=== PATIENT | male | born 1950 | race Caucasian/White ===

== ENCOUNTER 2019-12-31 15:00 | Inpatient (IN) ==
--- NOTE | 2019-12-31 15:36 | ERNOTE ---
Medical Problem HPI - Narrative Date of Service: 12/31/19 - General Chief Complaint: General Assessment Time Seen by Provider: 12/31/19 15:14 Source: patient Exam Limitations: no limitations - Immun/Allergies/Home Medications Immunizations: IMMUNIZATION HX Immunizations Up to Date Yes History of Influenza Vaccine No Hx Pneumococcal Vaccination No Allergies/Adverse Reactions: Allergies No Known Allergies Allergy (Verified 12/31/19 15:10) Home Medications: HOME MEDICATIONS NK 12/31/19 [Last Taken Unknown] - Pain Score Pain Score #1 Pain Score: 6 - History of Present History Narrative: The patient is a 69 year old male who presents for dyspnea and fatigue which has been present for 1 week. There are associated symptoms of abdominal pain and vomiting for the past several months. The patient denies pain. There are no alleviating factors. There are aggravating factors of activity and oral intake. Previous treatments have included: none. The past medical history includes: emphysema, pancreatitis, COPD, GERD and HTN. The social history is positive for current tobacco use. The patient has had no known ill contacts. Patient reports weight loss along with daily vomiting upon awakening for the past several months. Patient states he has had productive cough and tenacious sputum over the past week with increased weakness and dyspnea. Review of Systems - Review of Systems Constitutional: Present: chills, fatigue. Absent: fever EYE: Present: no symptoms reported ENT: Present: nose congestion, nasal drainage. Absent: ear pain, sore throat Respiratory: Present: shortness of breath, cough Cardiology: Present: no symptoms reported. Absent: chest pain Gastrointestinal/Abdominal: Present: nausea, vomiting, abdominal pain, eating less, drinking less. Absent: diarrhea Genitourinary: Present: no symptoms reported. Absent: dysuria Musculoskeletal: Present: no symptoms reported. Absent: back pain Skin: Present: no symptoms reported. Absent: rash Neurological: Present: dizziness/light-headedness, weakness All Other Systems: All systems neg except as marked Medical History (Last Reviewed 12/31/19 @ 15:29 by EFRAIN Milton) Cholelithiasis (Chronic) Weight loss of more than 10% body weight (Acute) Essential hypertension (Chronic) COPD mixed type (Chronic) Excessive tearing (Acute) Blepharochalasis left lower eyelid (Chronic) Tobacco abuse (Acute) Hypertension (Chronic) Chronic GERD (Chronic) Onset Date: ~05/31/13 COPD (chronic obstructive pulmonary disease) (Chronic) Onset Date: ~05/31/13 Emphysema lung (Chronic) Pancreatitis Onset Date: ~05/02/16 Chronic Calcific Surgical History: Surgical History (Last Reviewed 12/31/19 @ 15:29 by EFRAIN Milton) H/O colonoscopy Onset Date: ~201308/10/14- repeat 3-5 years for tubular adenoma History of hernia repair History of surgical removal of pilonidal cyst H/O vasectomy Family History: Family History (Last Reviewed 12/31/19 @ 15:29 by EFRAIN Milton) Father , @ age 88 Heart problem Mother , @ age 58 Cancer Unknown kind Social History: (Last Reviewed 12/31/19 @ 15:29 by EFRAIN Milton) Social History: Marital status: household members: children number of children: 3 current occupational status: retired Highest education level completed: high school graduate Service: No Tobacco: Smoking Status: Current every day smoker Alcohol: alcohol intake: former Substance Use: substance use type: does not use Dietary Habits: caffeine: Yes Physical Exam - Physical Exam General Appearance: Present: wd/wn, alert, moderate distress, thin Head Exam: Present: normal inspection Eye Exam: Normal inspection: bilateral Ears, Nose, Throat: Present: normal except -, dry mucous membranes Neck: Present: normal inspection Respiratory: Present: no respiratory distress, normal breath sounds, no accessory muscle use, lungs clear Cardiovascular/Chest: Present: no murmur, tachycardia Gastrointestinal/Abdominal: Present: nondistended, soft, no organomegaly, tenderness - RUQ, epigastric, abnormal bowel sounds - hypoactive, guarding - RUQ. Absent: rebound, mass Extremity Exam: Present: no edema Neurological Exam: Present: alert, oriented, normal mood/affect, no motor/sensory deficits Skin Exam: Present: normal color, warm/dry Progress - Date and Time Seen: Date and Time: 12/31/19 18:02 Results of testing reviewed with patient. Patient states he is feeling to weak to care for himself at home. Case discussed with and will admit for IV antibiotics and IV hydration with monitoring of electrolytes and liver function. - Results and Orders Patient's Lab Results:: I have reviewed the patient's lab results. Results and Orders: Laboratory Tests 12/31/19 12/31/19 12/31/19 15:34 15:34 15:34 WBC 8.5 Hgb 11.8 L Hct 35.5 L Plt Count 360 Neutrophils % 71.4 Lymphocytes % 19.6 L PT INR (Anticoag Therapy) D-Dimer 0.66 H Sodium 143 H Potassium 2.6 L D Anion Gap 21.5 H BUN 26 H D Creatinine 1.42 H D Est GFR (Non-Af Amer) 53 L D Total Bilirubin 1.1 AST 229 H ALT 131 H Alkaline Phosphatase 520 H Troponin I 0.029 C-Reactive Prot, Quant 5.7 H B-Natriuretic Peptide Albumin 1.7 L Amylase 43 Lipase 5 L Ur Specific Minto Urine Nitrate Ur Leukocyte Esterase Urine RBC Urine WBC Ur Epithelial Cells Urine Bacteria Urine Culture Comments 12/31/19 12/31/19 12/31/19 15:34 15:34 15:45 WBC Hgb Hct Plt Count Neutrophils % Lymphocytes % PT 12.3 H INR (Anticoag Therapy) 1.25 H D-Dimer Sodium Potassium Anion Gap BUN Creatinine Est GFR (Non-Af Amer) Total Bilirubin AST ALT Alkaline Phosphatase Troponin I C-Reactive Prot, Quant B-Natriuretic Peptide 777 H Albumin Amylase Lipase Ur Specific Minto 1.025 Urine Nitrate Positive H Ur Leukocyte Esterase Negative Urine RBC 0-5 Urine WBC 5-10 H Ur Epithelial Cells 0-5 Urine Bacteria 1+ H Urine Culture Comments Culture to follow - Vital Signs Patient's Vital Signs:: I have reviewed the patient's vital signs. Vital Signs: Vital Signs 12/31/19 15:03 Temperature 36.5 C Pulse Rate 103 H Respiratory Rate 20 Blood Pressure 122/75 O2 Sat by Pulse Oximetry 98 - EKG EKG #1 EKG: NSR - tachycardia, nonspecific ST T wave changes EKG read: Reviewed by me - X-Ray X-Ray #1 X-Ray: chest Interpretation: Reviewed by me X-ray Comments: IMPRESSION: NO ACUTE CARDIOPULMONARY ABNORMALITY IDENTIFIED. Electronically signed by Brett Ojeda D.O. X-Ray #2 X-Ray: abdomen Interpretation: Reviewed by me X-ray Comments: IMPRESSION: MILD FECAL RETENTION WITHOUT EVIDENCE FOR OBSTRUCTION. Electronically signed by Brett Ojeda D.O.. - CT/Ultrasound CT/Ultrasound Narrative: IMPRESSION: No evidence for cholecystitis. Electronically signed by Jass Perkins M.D.. IMPRESSION: 1. No identifiable PE or filling defect to suggest pulmonary embolus. 2. Remainder of the exam is as above Electronically signed by Jass Perkins M.D.. - Progress/Reassessment Chief Complaint: General Assessment Departure Clinical Impression: Dehydration, CHARITY (acute kidney injury), Weakness Urinary tract infection Qualifiers: Urinary tract infection type: site unspecified Hematuria presence: without hematuria Qualified Code(s): N39.0 - Urinary tract infection, site not specified - Departure Disposition: Still a patient Condition: Stable Referrals: Jeremy Anderson DO [Primary Care Provider] -
[2019-12-31 15:40] LABS: Hematocrit 35.5 % (42.0-52.0); Hemoglobin 11.8 gm/dL (13.5-18.0); Mean Cell Volume 99.7 fl (78-100); Mean Corpuscular Hemoglobin 33.1 pg (27-31); Mean Corpuscular Hgb Conc 33.2 g/dl (32-36); Mean Platelet Volume 10.5 fl (8-11.3); Neutrophil # 6.1 K/mm3 (1.3-6.0); Neutrophil % 71.4 % (42-75.0); Platelet Count 360 K/mm3 (150-450); Red Blood Count 3.56 M/mm3 (4.7-6.0); Red Cell Distribution Width 13.8 % (11.5-14.0); White Blood Count 8.5 K/mm3 (4.0-10.5)
[2019-12-31 15:51] LABS: Urine Bilirubin 1 mg/dl (NEGATIVE); Urine Blood Negative /ul (NEGATIVE); Urine Ketone 15 mg/dL (NEGATIVE); Urine Protein 15 mg/dL (NEGATIVE); Urine Specific Gravity 1.025 SP.GR. (1.005-1.030); Urine Urobilinogen 4 EU/dl (NORMAL)
[2019-12-31 15:59] LABS: Albumin * 1.7 gm/dl (3.4-5.0); Anion Gap 21.5 mmol/L (6.8-13.8); BUN/Creatinine Ratio 18.3 (9.0-21.6); Bilirubin, Total 1.1 mg/dL (0.0-1.1); CRP 5.7 mg/dL (0.0-0.9); Ca. Corrected For Albumin 8.5 mg/dL (8.4-10.2); Carbon Dioxide 29.1 mmol/L (24-32.6); Potassium 2.6 mmol/L (3.4-4.6); Total Protein 7.1 gm/dL (6.2-8.2)
[2019-12-31 16:00] LABS: Troponin I 0.029 ng/mL (0.00-0.10)
[2019-12-31 16:23] LABS: Urine Appearance Clear (CLEAR); Urine Bacteria 1+; Urine Color Dark Yellow; Urine Nitrite Positive (NEGATIVE); Urine RBC 0-5 /hpf (0-5)
[2019-12-31 16:24] LABS: Prothrombin Time (Patient) 12.3 Seconds (9.1-10.7)
[2019-12-31 16:26] LABS: INR 1.25 INR (0.92-1.08)
[2019-12-31] MEDS ORDERED: NORMAL SALINE 1,000 ML IV PRN (18:01)
[2019-12-31] MEDS ORDERED: cefTRIAXone SODIUM 1,000 MG/100 ML BAG IV ONE (18:01)
[2019-12-31] MEDS ORDERED: hydrALAZINE HCL 20 MG/ML VIAL IV PRN (19:27)
--- NOTE | 2019-12-31 19:30 | HP ---
Chief Complaint - Chief Complaint Date of Service: 12/31/19 Time of Service: 19:30 History of Present Illness: 69-year-old male presented to the ER yesterday for 1 weeks worth of cough, fatigue, sneha pain. Patient states he has vomited a few times since this began. His chest x-ray did not show any acute cardiopulmonary pathology. He also had a CT angiogram of his chest performed in the ER which ruled out pulmonary embolus. Patient has a history of hypertension, emphysema, GERD. Lab work in the ER showed him to have a normal white count without a shift. He did have a low potassium at 2.6 as well as an acute kidney injury with his creatinine at 1.42. Baseline is around 1. Urine showed him to have positive nitrates and positive bacteria which may be the cause of his abdominal pain and nausea. Patient admitted to the hospital for treatment of his UTI, correction of his electrolytes, and monitor management of his acute kidney injury. His vital signs have been stable is been afebrile. Medical History (Last Reviewed 12/31/19 @ 20:18 by Minerva Nelson RN) Cholelithiasis (Chronic) Weight loss of more than 10% body weight (Acute) Essential hypertension (Chronic) COPD mixed type (Chronic) Excessive tearing (Acute) Blepharochalasis left lower eyelid (Chronic) Tobacco abuse (Acute) Hypertension (Chronic) Chronic GERD (Chronic) Onset Date: ~05/31/13 COPD (chronic obstructive pulmonary disease) (Chronic) Onset Date: ~05/31/13 Emphysema lung (Chronic) Pancreatitis Onset Date: ~05/02/16 Chronic Calcific Surgical History: Surgical History (Last Reviewed 12/31/19 @ 20:18 by Minerva Nelson RN) H/O colonoscopy Onset Date: ~201308/10/14- repeat 3-5 years for tubular adenoma History of hernia repair History of surgical removal of pilonidal cyst H/O vasectomy Family History: Family History (Last Reviewed 12/31/19 @ 20:18 by Minerva Nelson RN) Father , @ age 88 Heart problem Mother , @ age 58 Cancer Unknown kind Social History: (Last Reviewed 12/31/19 @ 20:18 by Minerva Nelson RN) Social History: Marital status: household members: children number of children: 3 current occupational status: retired Highest education level completed: high school graduate Service: No Tobacco: Smoking Status: Current every day smoker Alcohol: alcohol intake: former Substance Use: substance use type: does not use Dietary Habits: caffeine: Yes Review Of Systems (GEN) - Review of Systems Generalized/Overall Review: Present: Fatigue. Absent: Chills, Fever, Weight loss EENTM: Present: No Symptoms Reported Cardiac: Absent: Chest Pain, Palpitations Abdominal: Present: Nausea, Vomiting, Abdominal Pain Genitourinary: Absent: Burning, Urgency Musculoskeletal: Present: No Symptoms Reported Neurological: Present: No Symptoms Reported Skin: Present: No Symptoms Reported Endocrine: Present: No Symptoms Reported Immunizations: IMMUNIZATION HX Immunizations Up to Date Yes History of Influenza Vaccine No Hx Pneumococcal Vaccination No Allergies/Adverse Reactions: Allergies Allergy/AdvReac Type Severity Reaction Status Date / Time No Known Allergies Allergy Verified 12/31/19 15:10 Home Medications: HOME MEDICATIONS NK 12/31/19 [Last Taken Unknown] Exam - Exam Vital Signs: Vital Signs - Last Taken Temp 36.6 C 12/31/19 18:40 Pulse 78 12/31/19 18:40 Resp 18 12/31/19 18:40 BP 162/97 H 12/31/19 18:40 Pulse Ox 100 12/31/19 18:40 Constitutional: Present: Alert, Oriented x3, Mild distress, Thin and frail Eye Exam: bilateral eye: normal inspection, EOMI Neck: Present: non-tender, normal inspection Back Exam: Present: no CVA tenderness Breasts: Present: Exam deferred Respiratory: Present: lungs clear, decreased breath sounds Cardiovascular/Chest: Present: regular rate, rhythm, no murmur Abdomen: Present: Normal bowel sounds, soft, tender Skin Exam: Present: normal color, warm/dry Appearance: Present: disheveled, impaired insight Eye contact: Present: good eye contact, decreased rate of speech Thoughts: Present: normal thought pattern, normal mood /affect Diagnostic Studies: Abnormal Lab Results 12/31/19 12/31/19 12/31/19 Range/Units 15:34 15:34 15:34 RBC 3.56 L (4.7-6.0) M/mm3 Hgb 11.8 L (13.5-18.0) gm/dL Hct 35.5 L (42.0-52.0) % MCH 33.1 H (27-31) pg Lymphocytes % 19.6 L (20-51) % Neutrophils # 6.1 H (1.3-6.0) K/mm3 PT (9.1-10.7) Seconds INR (Anticoag Therapy) (0.92-1.08) INR D-Dimer 0.66 H (0.19-0.49) ug/mL Sodium 143 H (132-142) mmol/L Plasma Sodium 143 H (130-142) mmol/L Potassium 2.6 L D (3.4-4.6) mmol/L Chloride 95 L (97-106) mmol/L Anion Gap 21.5 H (6.8-13.8) mmol/L BUN 26 H D (6-23) mg/dL Creatinine 1.42 H D (0.4-1.4) mg/dL Est GFR (Non-Af Amer) 53 L D (60-130) mL/min Random Glucose 117 H (70-110) mg/dL Calcium 7.0 L (7.9-10.9) mg/dL AST 229 H (0-48) U/L ALT 131 H (19-67) U/L Alkaline Phosphatase 520 H (50-170) U/L C-Reactive Prot, Quant 5.7 H (0.0-0.9) mg/dL B-Natriuretic Peptide (5-350) pg/mL Albumin 1.7 L (3.4-5.0) gm/dl Lipase 5 L (73-393) U/L Urine Protein (NEGATIVE) mg/dL Urine Nitrate (NEGATIVE) Urine Bilirubin (NEGATIVE) mg/dl Urine Urobilinogen (NORMAL) EU/dl Urine WBC (0-5) /hpf Urine Bacteria (NONE) 12/31/19 12/31/19 12/31/19 Range/Units 15:34 15:34 15:45 RBC (4.7-6.0) M/mm3 Hgb (13.5-18.0) gm/dL Hct (42.0-52.0) % MCH (27-31) pg Lymphocytes % (20-51) % Neutrophils # (1.3-6.0) K/mm3 PT 12.3 H (9.1-10.7) Seconds INR (Anticoag Therapy) 1.25 H (0.92-1.08) INR D-Dimer (0.19-0.49) ug/mL Sodium (132-142) mmol/L Plasma Sodium (130-142) mmol/L Potassium (3.4-4.6) mmol/L Chloride (97-106) mmol/L Anion Gap (6.8-13.8) mmol/L BUN (6-23) mg/dL Creatinine (0.4-1.4) mg/dL Est GFR (Non-Af Amer) (60-130) mL/min Random Glucose (70-110) mg/dL Calcium (7.9-10.9) mg/dL AST (0-48) U/L ALT (19-67) U/L Alkaline Phosphatase (50-170) U/L C-Reactive Prot, Quant (0.0-0.9) mg/dL B-Natriuretic Peptide 777 H (5-350) pg/mL Albumin (3.4-5.0) gm/dl Lipase (73-393) U/L Urine Protein 15 H (NEGATIVE) mg/dL Urine Nitrate Positive H (NEGATIVE) Urine Bilirubin 1 H (NEGATIVE) mg/dl Urine Urobilinogen 4 H (NORMAL) EU/dl Urine WBC 5-10 H (0-5) /hpf Urine Bacteria 1+ H (NONE) Laboratory Results WBC 8.5 K/mm3 (4.0-10.5) 12/31/19 15:34 RBC 3.56 M/mm3 (4.7-6.0) L 12/31/19 15:34 Hgb 11.8 gm/dL (13.5-18.0) L 12/31/19 15:34 Hct 35.5 % (42.0-52.0) L 12/31/19 15:34 MCV 99.7 fl (78-100) 12/31/19 15:34 MCH 33.1 pg (27-31) H 12/31/19 15:34 MCHC 33.2 g/dl (32-36) 12/31/19 15:34 RDW 13.8 % (11.5-14.0) 12/31/19 15:34 Plt Count 360 K/mm3 (150-450) 12/31/19 15:34 MPV 10.5 fl (8-11.3) 12/31/19 15:34 Immature Gran % (Auto) 0.40 % (0.001-0.429) 12/31/19 15:34 Immature Gran # (Auto) 0.03 K/mm3 (0.000-0.0310) 12/31/19 15:34 Neutrophils % 71.4 % (42-75.0) 12/31/19 15:34 Lymphocytes % 19.6 % (20-51) L 12/31/19 15:34 Monocytes % 8.1 % (0.0-9) 12/31/19 15:34 Eosinophils % 0.1 % (0.0-3.0) 12/31/19 15:34 Basophils % 0.4 % (0.0-1.0) 12/31/19 15:34 Nucleated RBC % 0.0 k/mm3 (0-1) 12/31/19 15:34 Neutrophils # 6.1 K/mm3 (1.3-6.0) H 12/31/19 15:34 Lymphocytes # 1.66 k/mm3 (1.5-3.5) 12/31/19 15:34 Monocytes # 0.7 k/mm3 (0.0-1.0) 12/31/19 15:34 Eosinophils # 0.0 k/mm3 (0.0-0.7) 12/31/19 15:34 Absolute Basophils 0.0 k/mm3 (0.0-0.1) 12/31/19 15:34 PT 12.3 Seconds (9.1-10.7) H 12/31/19 15:34 INR (Anticoag Therapy) 1.25 INR (0.92-1.08) H 12/31/19 15:34 PTT ([place]) 30.0 Seconds (24-32) 12/31/19 15:34 D-Dimer 0.66 ug/mL (0.19-0.49) H 12/31/19 15:34 Sodium 143 mmol/L (132-142) H 12/31/19 15:34 Plasma Sodium 143 mmol/L (130-142) H 12/31/19 15:34 Potassium 2.6 mmol/L (3.4-4.6) L D 12/31/19 15:34 Chloride 95 mmol/L (97-106) L 12/31/19 15:34 Carbon Dioxide 29.1 mmol/L (24-32.6) 12/31/19 15:34 Anion Gap 21.5 mmol/L (6.8-13.8) H 12/31/19 15:34 BUN 26 mg/dL (6-23) H D 12/31/19 15:34 Creatinine 1.42 mg/dL (0.4-1.4) H D 12/31/19 15:34 Est GFR (Non-Af Amer) 53 mL/min (60-130) L D 12/31/19 15:34 BUN/Creatinine Ratio 18.3 (9.0-21.6) 12/31/19 15:34 Random Glucose 117 mg/dL (70-110) H 12/31/19 15:34 Calcium 7.0 mg/dL (7.9-10.9) L 12/31/19 15:34 Calcium Adj for Albumin 8.5 mg/dL (8.4-10.2) 12/31/19 15:34 Total Bilirubin 1.1 mg/dL (0.0-1.1) 12/31/19 15:34 AST 229 U/L (0-48) H 12/31/19 15:34 ALT 131 U/L (19-67) H 12/31/19 15:34 Alkaline Phosphatase 520 U/L (50-170) H 12/31/19 15:34 Troponin I 0.029 ng/mL (0.00-0.10) 12/31/19 15:34 C-Reactive Prot, Quant 5.7 mg/dL (0.0-0.9) H 12/31/19 15:34 B-Natriuretic Peptide 777 pg/mL (5-350) H 12/31/19 15:34 Total Protein 7.1 gm/dL (6.2-8.2) 12/31/19 15:34 Albumin 1.7 gm/dl (3.4-5.0) L 12/31/19 15:34 Amylase 43 U/L (25-115) 12/31/19 15:34 Lipase 5 U/L (73-393) L 12/31/19 15:34 Urine Color Dark yellow 12/31/19 15:45 Urine Appearance Clear (CLEAR) 12/31/19 15:45 Urine pH 6.0 pH (5.0-7.0) 12/31/19 15:45 Ur Specific Valentine 1.025 SP.GR. (1.005-1.030) 12/31/19 15:45 Urine Protein 15 mg/dL (NEGATIVE) H 12/31/19 15:45 Urine Glucose (UA) Negative mg/dL (NEGATIVE) 12/31/19 15:45 Urine Ketones 15 mg/dL (NEGATIVE) 12/31/19 15:45 Urine Blood Negative /ul (NEGATIVE) 12/31/19 15:45 Urine Nitrate Positive (NEGATIVE) H 12/31/19 15:45 Urine Bilirubin 1 mg/dl (NEGATIVE) H 12/31/19 15:45 Urine Ictotest Negative (NEGATIVE) 12/31/19 15:45 Prot Sulfosalicylic Acd Negative mg/dL (0) 12/31/19 15:45 Urine Urobilinogen 4 EU/dl (NORMAL) H 12/31/19 15:45 Ur Leukocyte Esterase Negative /ul (NEGATIVE) 12/31/19 15:45 Urine RBC 0-5 /hpf (0-5) 12/31/19 15:45 Urine WBC 5-10 /hpf (0-5) H 12/31/19 15:45 Ur Epithelial Cells 0-5 /hpf (0-5) 12/31/19 15:45 Urine Bacteria 1+ (NONE) H 12/31/19 15:45 Urine Culture Comments Culture to follow 12/31/19 15:45 Assessment/Plan - Narrative Narrative: [facility] with acute kidney injury likely secondary to UTI. Patient currently being bolused a liter fluid. He received a gram of Rocephin in the ER. Waiting for cultures to return for his UTI. We will replenish his potassium Hopefully his abdominal pain is better with the treatment of this UTI. Patient does not white count or shift. Abdominal pain is nonspecific and mild, negative CVA tenderness We will restart his home medications including treatment for his blood pressure and provide breathing treatments as needed for shortness of breath/wheezing/cou gh. Patient not currently having a cough, has no issues with breathing. His O2 saturations are stable on room air. We will start him on a heart healthy diet. SCDs to be worn while in bed. Nurse will call questions or concerns - Assessment/Plan (1) Dehydration Problem: Acute (2) CHARITY (acute kidney injury) Problem: Acute (3) Urinary tract infection Problem: Acute Qualifiers: Urinary tract infection type: site unspecified Hematuria presence: without hematuria Qualified Code(s): N39.0 - Urinary tract infection, site not specified (4) Abdominal pain Problem: Acute Qualifiers: Abdominal location: upper abdomen, unspecified Qualified Code(s): R10.10 - Upper abdominal pain, unspecified (5) Essential hypertension Problem: Chronic (6) Tobacco abuse Problem: Acute (7) COPD (chronic obstructive pulmonary disease) Problem: Chronic (8) Weakness Problem: Acute (9) Hypokalemia Problem: Acute
[2019-12-31] MEDS ORDERED: NORMAL SALINE 1,000 ML IV ONE (20:30)
[2019-12-31] MEDS: ONDANSETRON HCL/PF 2 MG/ML VIAL IV PRN (21:23)
[2020-01-01 07:46] LABS: Albumin * 1.2 gm/dl (3.4-5.0); Anion Gap 8.8 mmol/L (6.8-13.8); BUN/Creatinine Ratio 17.1 (9.0-21.6); Bilirubin, Total 0.7 mg/dL (0.0-1.1); Ca. Corrected For Albumin 8.5 mg/dL (8.4-10.2); Calcium * 6.6 mg/dL (7.9-10.9); Carbon Dioxide 36.6 mmol/L (24-32.6); Total Protein 5.5 gm/dL (6.2-8.2)
[2020-01-01 07:50] LABS: Potassium 2.4 mmol/L (3.4-4.6)
[2020-01-01] MEDS: ONDANSETRON HCL/PF 2 MG/ML VIAL IV PRN (10:46)
[2020-01-01] MEDS: POTASSIUM CHLORIDE 40 MEQ/15 ML LIQUID PO SCH (10:46)
--- NOTE | 2020-01-01 11:46 | PN ---
Subjective - Date and Time Seen Date: 01/01/20 Time: 11:46 Subjective Narrative: Patient laying comfortably in bed this morning when visited. He states that feeling better. He denies urinary symptoms over time. He is been afebrile and his vital signs been stable. He states he feels weak everything he had poor diet for some time and he has minimal fluid intake hence the dehydration. Patient benefit from physical therapy consult Objective - Review of Systems Generalized/Overall Review: Reports: Weakness. Denies: Chills, Fever EENTM: Reports: No Symptoms Reported Respiratory: Reports: Cough. Denies: Shortness of Breath Cardiac: Reports: No Symptoms Reported Abdominal: Reports: Nausea. Denies: Vomiting, Abdominal Pain Genitourinary Symptoms: Denies: Burning, Urgency, Frequency Neurological: Reports: No Symptoms Reported Skin: Reports: No Symptoms Reported Endocrine: Reports: No Symptoms Reported - Vitals Vitals: Last Vital Signs Temp 36.8 C 01/01/20 11:00 Pulse 66 01/01/20 11:00 Resp 16 01/01/20 11:00 BP 153/80 H 01/01/20 11:00 Pulse Ox 92 L 01/01/20 11:00 - Abnormal Lab Findings Abnormal Lab Findings: Abnormal Lab Results 12/31/19 12/31/19 12/31/19 Range/Units 15:34 15:34 15:34 RBC 3.56 L (4.7-6.0) M/mm3 Hgb 11.8 L (13.5-18.0) gm/dL Hct 35.5 L (42.0-52.0) % MCH 33.1 H (27-31) pg Lymphocytes % 19.6 L (20-51) % Neutrophils # 6.1 H (1.3-6.0) K/mm3 PT (9.1-10.7) Seconds INR (Anticoag Therapy) (0.92-1.08) INR D-Dimer 0.66 H (0.19-0.49) ug/mL Sodium 143 H (132-142) mmol/L Plasma Sodium 143 H (130-142) mmol/L Potassium 2.6 L D (3.4-4.6) mmol/L Chloride 95 L (97-106) mmol/L Carbon Dioxide (24-32.6) mmol/L Anion Gap 21.5 H (6.8-13.8) mmol/L BUN 26 H D (6-23) mg/dL Creatinine 1.42 H D (0.4-1.4) mg/dL Est GFR (Non-Af Amer) 53 L D (60-130) mL/min Random Glucose 117 H (70-110) mg/dL Calcium 7.0 L (7.9-10.9) mg/dL AST 229 H (0-48) U/L ALT 131 H (19-67) U/L Alkaline Phosphatase 520 H (50-170) U/L C-Reactive Prot, Quant 5.7 H (0.0-0.9) mg/dL B-Natriuretic Peptide (5-350) pg/mL Total Protein (6.2-8.2) gm/dL Albumin 1.7 L (3.4-5.0) gm/dl Lipase 5 L (73-393) U/L Urine Protein (NEGATIVE) mg/dL Urine Nitrate (NEGATIVE) Urine Bilirubin (NEGATIVE) mg/dl Urine Urobilinogen (NORMAL) EU/dl Urine WBC (0-5) /hpf Urine Bacteria (NONE) 12/31/19 12/31/19 12/31/19 Range/Units 15:34 15:34 15:45 RBC (4.7-6.0) M/mm3 Hgb (13.5-18.0) gm/dL Hct (42.0-52.0) % MCH (27-31) pg Lymphocytes % (20-51) % Neutrophils # (1.3-6.0) K/mm3 PT 12.3 H (9.1-10.7) Seconds INR (Anticoag Therapy) 1.25 H (0.92-1.08) INR D-Dimer (0.19-0.49) ug/mL Sodium (132-142) mmol/L Plasma Sodium (130-142) mmol/L Potassium (3.4-4.6) mmol/L Chloride (97-106) mmol/L Carbon Dioxide (24-32.6) mmol/L Anion Gap (6.8-13.8) mmol/L BUN (6-23) mg/dL Creatinine (0.4-1.4) mg/dL Est GFR (Non-Af Amer) (60-130) mL/min Random Glucose (70-110) mg/dL Calcium (7.9-10.9) mg/dL AST (0-48) U/L ALT (19-67) U/L Alkaline Phosphatase (50-170) U/L C-Reactive Prot, Quant (0.0-0.9) mg/dL B-Natriuretic Peptide 777 H (5-350) pg/mL Total Protein (6.2-8.2) gm/dL Albumin (3.4-5.0) gm/dl Lipase (73-393) U/L Urine Protein 15 H (NEGATIVE) mg/dL Urine Nitrate Positive H (NEGATIVE) Urine Bilirubin 1 H (NEGATIVE) mg/dl Urine Urobilinogen 4 H (NORMAL) EU/dl Urine WBC 5-10 H (0-5) /hpf Urine Bacteria 1+ H (NONE) 01/01/20 Range/Units 07:23 RBC (4.7-6.0) M/mm3 Hgb (13.5-18.0) gm/dL Hct (42.0-52.0) % MCH (27-31) pg Lymphocytes % (20-51) % Neutrophils # (1.3-6.0) K/mm3 PT (9.1-10.7) Seconds INR (Anticoag Therapy) (0.92-1.08) INR D-Dimer (0.19-0.49) ug/mL Sodium 145 H (132-142) mmol/L Plasma Sodium 145 H (130-142) mmol/L Potassium 2.4 L* (3.4-4.6) mmol/L Chloride (97-106) mmol/L Carbon Dioxide 36.6 H (24-32.6) mmol/L Anion Gap (6.8-13.8) mmol/L BUN (6-23) mg/dL Creatinine (0.4-1.4) mg/dL Est GFR (Non-Af Amer) (60-130) mL/min Random Glucose (70-110) mg/dL Calcium 6.6 L (7.9-10.9) mg/dL AST 126 H (0-48) U/L ALT 88 H (19-67) U/L Alkaline Phosphatase 398 H (50-170) U/L C-Reactive Prot, Quant (0.0-0.9) mg/dL B-Natriuretic Peptide (5-350) pg/mL Total Protein 5.5 L (6.2-8.2) gm/dL Albumin 1.2 L (3.4-5.0) gm/dl Lipase (73-393) U/L Urine Protein (NEGATIVE) mg/dL Urine Nitrate (NEGATIVE) Urine Bilirubin (NEGATIVE) mg/dl Urine Urobilinogen (NORMAL) EU/dl Urine WBC (0-5) /hpf Urine Bacteria (NONE) - Exam Constitutional: Present: Alert, Oriented x3, Cooperative, Thin and frail ENT Exam: Absent: nasal congestion, nasal drainage Neck: Present: non-tender, supple Respiratory: Present: lungs clear, decreased breath sounds. Absent: crackles, wheezing Cardiovascular/Chest: Present: regular rate, rhythm. Absent: no murmur Abdomen: Present: Normal bowel sounds, soft, nontender Skin Exam: Present: normal color, warm/dry Neurologic: Present: alert, oriented x 3 Appearance: Present: disheveled, impaired insight Eye contact: Present: cooperative, good eye contact Thoughts: Present: normal mood /affect Assessment/Plan Plan Narrative: Patient did well overnight without any acute adverse events. Patient vital signs are stable and he is been afebrile. Preliminary urine cultures come back showing no growth so unsure what to make of his UA and abdominal pain and nausea. We will give him another day about biotics while waiting for the cultures to finalize. I think likely most of his problem is that he has been severely dehydrated which led to his acute kidney injury and likely his fatigue. Kidney function improved today from admission. Close to baseline now. Potassium dropped some as he did not receive a dose potassium last night, this was replenished today: patient was given 40 mEq orally as well as 20 mEq in his IV hydration. Continue SCDs for DVT prophylaxis. Will order PT form to see if this can help with some of his weakness. No changes to his diet or other medications. Nurse will call questions or concerns. - Problems/Diagnosis (1) CHARITY (acute kidney injury) Problem: Acute (2) Dehydration Problem: Acute (3) Urinary tract infection Problem: Acute Qualifiers: Urinary tract infection type: site unspecified Hematuria presence: without hematuria Qualified Code(s): N39.0 - Urinary tract infection, site not specified (4) Hypokalemia Problem: Acute (5) Weakness Problem: Acute (6) Abdominal pain Problem: Acute Qualifiers: Abdominal location: upper abdomen, unspecified Qualified Code(s): R10.10 - Upper abdominal pain, unspecified (7) Essential hypertension Problem: Chronic (8) Tobacco abuse Problem: Acute
[2020-01-01] MEDS ORDERED: POTASSIUM CHLORIDE 20 MEQ in NORMAL SALINE 1,000 ML IV SCH (12:45)
[2020-01-02 06:59] LABS: Hematocrit 29.8 % (42.0-52.0); Hemoglobin 9.9 gm/dL (13.5-18.0); Mean Cell Volume 98.3 fl (78-100); Mean Corpuscular Hemoglobin 32.7 pg (27-31); Mean Corpuscular Hgb Conc 33.2 g/dl (32-36); Mean Platelet Volume 10.4 fl (8-11.3); Neutrophil # 3.2 K/mm3 (1.3-6.0); Neutrophil % 58.1 % (42-75.0); Platelet Count 249 K/mm3 (150-450); Red Blood Count 3.03 M/mm3 (4.7-6.0); Red Cell Distribution Width 13.8 % (11.5-14.0); White Blood Count 5.5 K/mm3 (4.0-10.5)
[2020-01-02 07:15] LABS: Anion Gap 8.6 mmol/L (6.8-13.8); Calcium * 6.8 mg/dL (7.9-10.9); Carbon Dioxide 33.1 mmol/L (24-32.6); Potassium 2.7 mmol/L (3.4-4.6)
[2020-01-02] MEDS: POTASSIUM CHLORIDE 40 MEQ/15 ML LIQUID PO SCH (08:05)
--- NOTE | 2020-01-02 19:13 | PN ---
Subjective - Date and Time Seen Date: 01/02/20 Time: 18:56 Subjective Narrative: Patient much more comfortable today than he was a day previously. Still has some weakness. Patient is malnourished and admits to not eating well prior to coming to the hospital. Urine does not appear to be grown anything, will stop IV antibiotics. Patient's vital signs are stable otherwise and he is doing okay. Potassium, 2.7. Will repeat potassium in the morning as it is currently being replaced. Objective - Review of Systems Generalized/Overall Review: Reports: Weakness, Fatigue, Weight loss EENTM: Reports: No Symptoms Reported Respiratory: Reports: Cough, Shortness of Breath. Denies: Wheezing Cardiac: Reports: No Symptoms Reported Abdominal: Reports: No Symptoms Reported Genitourinary Symptoms: Reports: No Symptoms Reported - Vitals Vitals: Last Vital Signs Temp 37.0 C 01/02/20 17:31 Pulse 80 01/02/20 17:31 Resp 20 01/02/20 17:31 BP 107/71 01/02/20 17:31 Pulse Ox 93 01/02/20 17:31 - Abnormal Lab Findings Abnormal Lab Findings: Abnormal Lab Results 01/02/20 01/02/20 Range/Units 06:50 06:50 RBC 3.03 L (4.7-6.0) M/mm3 Hgb 9.9 L (13.5-18.0) gm/dL Hct 29.8 L (42.0-52.0) % MCH 32.7 H (27-31) pg Potassium 2.7 L (3.4-4.6) mmol/L Carbon Dioxide 33.1 H (24-32.6) mmol/L Calcium 6.8 L (7.9-10.9) mg/dL - Exam Constitutional: Present: Alert, Oriented x3, No distress, Thin and frail, Looks Older than stated age Respiratory: Present: lungs clear, no respiratory distress Cardiovascular/Chest: Present: regular rate, rhythm, no murmur Appearance: Present: disheveled, impaired insight Assessment/Plan Plan Narrative: Overall patient is making improvement with how he feels. Kidney function returned back to normal. Patient potassium still low at 2.7. Currently being replaced. Repeat labs in the morning. Acute kidney injury has resolved. Patient does not look like he has a UTI, urine culture not growing anything. We will stop IV antibiotics. While waiting for the final speciation of his culture to come back, we will give him 1 more day of cefdinir orally to complete treatment for a UTI. Abdominal pain improved. Vital signs been stable otherwise, he is been afebrile. Recommend physical therapy form in outpatient setting which he agrees to do. PT should be get by to evaluate him tomorrow. Continue current treatment plan, likely discharge home tomorrow if potassium back within an acceptable range. Nurse to call with any questions or concerns - Problems/Diagnosis (1) CHARITY (acute kidney injury) Problem: Acute (2) Dehydration Problem: Acute (3) Urinary tract infection Problem: Acute Qualifiers: Urinary tract infection type: site unspecified Hematuria presence: without hematuria Qualified Code(s): N39.0 - Urinary tract infection, site not specified (4) Hypokalemia Problem: Acute (5) Weakness Problem: Acute (6) Abdominal pain Problem: Acute Qualifiers: Abdominal location: upper abdomen, unspecified Qualified Code(s): R10.10 - Upper abdominal pain, unspecified (7) Essential hypertension Problem: Chronic (8) Tobacco abuse Problem: Acute
[2020-01-02] MEDS ORDERED: CEFDINIR 250 MG/5 ML SUSP.RECON PO ONE (20:19)
[2020-01-02] MEDS ORDERED: CEFDINIR 300 MG CAPSULE PO SCH (21:00)
[2020-01-02 21:30] LABS: Anion Gap 5.3 mmol/L (6.8-13.8); BUN/Creatinine Ratio 12.3 (9.0-21.6); Calcium * 6.6 mg/dL (7.9-10.9); Carbon Dioxide 35.9 mmol/L (24-32.6); Estimated Creat Clear 64.9; Potassium 3.2 mmol/L (3.4-4.6)
[2020-01-03] MEDS: ONDANSETRON HCL/PF 2 MG/ML VIAL IV PRN (07:15)
[2020-01-03 07:35] LABS: Hematocrit 34.2 % (42.0-52.0); Hemoglobin 11.5 gm/dL (13.5-18.0); Mean Cell Volume 99.7 fl (78-100); Mean Corpuscular Hemoglobin 33.5 pg (27-31); Mean Corpuscular Hgb Conc 33.6 g/dl (32-36); Mean Platelet Volume 10.4 fl (8-11.3); Neutrophil # 4.1 K/mm3 (1.3-6.0); Neutrophil % 55.3 % (42-75.0); Platelet Count 291 K/mm3 (150-450); Red Blood Count 3.43 M/mm3 (4.7-6.0); Red Cell Distribution Width 13.9 % (11.5-14.0); White Blood Count 7.4 K/mm3 (4.0-10.5)
[2020-01-03 07:43] LABS: Anion Gap 11.3 mmol/L (6.8-13.8); BUN/Creatinine Ratio 12.7 (9.0-21.6); Carbon Dioxide 32.9 mmol/L (24-32.6); Estimated Creat Clear 72.6; Potassium 3.2 mmol/L (3.4-4.6)
[2020-01-03] MEDS ORDERED: CEFDINIR 250 MG/5 ML SUSP.RECON PO SCH ×2 (09:00)
[2020-01-03] MEDS: POTASSIUM CHLORIDE 40 MEQ/15 ML LIQUID PO SCH (09:50)
[2020-01-03] MEDS: NORMAL SALINE 1,000 ML IV PRN ×2 (10:11→11:19)
[2020-01-03] MEDS ORDERED: DIATRIZOATE MEGLUMINE, SODIUM 30 ML BTL PO ONE (10:25)
--- NOTE | 2020-01-03 10:33 | PN ---
Subjective - Date and Time Seen Date: 01/03/20 Subjective Narrative: On service note: Lloyd Rodriguez is a 69-year-old emaciated malnourished male admitted on December 30 for suspected UTI and abdominal pain. He has had nausea and vomiting and is anorexic. His urinalysis was positive for nitrates but the cultures have failed to grow out a pathogen. LFTs are abnormal but bilirubin is normal. He does have urobilinogen that is elevated however. An ultrasound of the gallbladder was normal but the study was isolated to that single organ. A KUB and upright shows calcifications of the pancreas reflecting previous episodes of pancreatitis. Lloyd admits to having been an alcohol drinker previously but stopped drinking about 2 years ago. He continues to smoke on a daily basis. He appears weak and emaciated. He is not aware of any weight loss but says that his clothes are fitting much looser than they used to. His albumin is only 1.2 this morning. He was dehydrated on admission and received some IV fluids which corrected his BUN, creatinine, and EGFR. However he continues to have orthostatic hypotension dropping 20% from supine to standing and reflex tachycardia to sinus tachycardia rate of 160 on standing. He becomes weak and lightheaded. This improves with lying back down. Clinically I suspect that he is still dehydrated and needs more IV fluids. The abnormal liver function tests etiology is not yet apparent and I will order a CT of the abdomen and pelvis with contrast today. I have also ordered a hepatitis panel. That is a send out test that will take 3 to 5 days to get back. I suspect he either has cirrhosis, hepatitis, or a malignancy. I will get a dietary consultation and see if we can start some protein supplements. Antibiotics were initially started but have been appropriately discontinued given the absence of UTI per urine culture results. Objective - Review of Systems Generalized/Overall Review: Reports: Weakness, Malaise, Fatigue, Weight loss EENTM: Reports: No Symptoms Reported Respiratory: Reports: Cough, Shortness of Breath - With exertion Cardiac: Reports: Other - Tachycardia upon standing and walking Abdominal: Reports: Nausea, Vomiting, Abdominal Pain Genitourinary Symptoms: Reports: No Symptoms Reported Musculoskeletal Complaints: Reports: Other - Generalized motor weakness Neurological: Reports: Weakness Skin: Reports: No Symptoms Reported Endocrine: Reports: No Symptoms Reported - Vitals Vitals: Last Vital Signs Temp 36.7 C 01/03/20 07:42 Pulse 90 01/03/20 08:59 Resp 13 01/03/20 07:42 BP 113/75 01/03/20 07:42 Pulse Ox 92 L 01/03/20 07:42 - Abnormal Lab Findings Abnormal Lab Findings: Abnormal Lab Results 01/02/20 01/03/20 01/03/20 Range/Units 21:15 07:30 07:30 RBC 3.43 L (4.7-6.0) M/mm3 Hgb 11.5 L (13.5-18.0) gm/dL Hct 34.2 L (42.0-52.0) % MCH 33.5 H (27-31) pg Potassium 3.2 L 3.2 L (3.4-4.6) mmol/L Carbon Dioxide 35.9 H 32.9 H (24-32.6) mmol/L Anion Gap 5.3 L (6.8-13.8) mmol/L Random Glucose 130 H (70-110) mg/dL Calcium 6.6 L 7.0 L (7.9-10.9) mg/dL - EKG/Xray Findings EKG: other - Orthostatic reflex sinus tachycardia EKG read: Reviewed by me XRAY: abdomen Interpretation: Reviewed by me - Exam Constitutional: Present: Alert, Oriented x3, Cooperative, Well developed, Mild d istress, Thin and frail, Looks Older than stated age. Absent: Well nourished ENT Exam: Present: normal ENT inspection, hearing grossly normal, pharynx normal Neck: Present: non-tender, full range of motion, supple Breasts: Present: Exam deferred Respiratory: Present: chest non-tender, lungs clear, no respiratory distress, no accessory muscle use, decreased breath sounds Cardiovascular/Chest: Present: normal peripheral pulses, regular rate, rhythm - At rest in a supine position, tachycardia - With sitting and standing Abdomen: Present: no rebound tenderness, no masses, tender, guarding. 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 Infused 2 L normal saline at bolus rate and then re-saline lock IV 2. CT of abdomen and pelvis with contrast 3. Hepatitis panel 4. Start IV omeprazole 40mg daily 5. Recheck orthostatic blood pressures each shift 6. Progress activity as tolerated 7. Dietary consultation 8. Repeat morning lab including CBC, CMP - Problems/Diagnosis (1) Abnormal LFTs Problem: Acute (2) Malnutrition Problem: Chronic Qualifiers: Malnutrition type: protein-calorie malnutrition Protein-calorie malnutrition severity: moderate Qualified Code(s): E44.0 - Moderate protein- calorie malnutrition (3) Orthostatic hypotension Problem: Acute (4) Paroxysmal sinus tachycardia Problem: Acute (5) Weakness Problem: Acute (6) Hypokalemia Problem: Acute (7) Weight loss of more than 10% body weight Problem: Acute (8) COPD mixed type Problem: Chronic (9) Abdominal pain Problem: Acute Qualifiers: Abdominal location: upper abdomen, unspecified Qualified Code(s): R10.10 - Upper abdominal pain, unspecified (10) Dehydration Problem: Acute
[2020-01-03] MEDS: PANTOPRAZOLE SODIUM 40 MG in NORMAL SALINE 100 ML IV SCH ×2 (11:20→22:24)
[2020-01-03] MEDS: SUCRALFATE 1 G/10 ML UDC PO SCH ×3 (11:22→22:24)
[2020-01-03] MEDS ORDERED: ONDANSETRON 8 MG TAB.RAPDIS PO PRN (16:00)
[2020-01-04 06:13] LABS: Hematocrit 26.2 % (42.0-52.0); Hemoglobin 8.7 gm/dL (13.5-18.0); Mean Cell Volume 100.8 fl (78-100); Mean Corpuscular Hemoglobin 33.5 pg (27-31); Mean Corpuscular Hgb Conc 33.2 g/dl (32-36); Mean Platelet Volume 10.6 fl (8-11.3); Neutrophil # 3.1 K/mm3 (1.3-6.0); Neutrophil % 53.8 % (42-75.0); Platelet Count 242 K/mm3 (150-450); Red Cell Distribution Width 14.2 % (11.5-14.0); White Blood Count 5.8 K/mm3 (4.0-10.5)
[2020-01-04 06:21] LABS: Prothrombin Time (Patient) 12.7 Seconds (9.1-10.7)
[2020-01-04 06:22] LABS: INR 1.3 INR (0.92-1.08)
[2020-01-04 06:33] LABS: Anion Gap 6.5 mmol/L (6.8-13.8); BUN/Creatinine Ratio 10.3 (9.0-21.6); Bilirubin, Total 0.5 mg/dL (0.0-1.1); Ca. Corrected For Albumin 8.7 mg/dL (8.4-10.2); Calcium * 6.6 mg/dL (7.9-10.9); Carbon Dioxide 33.5 mmol/L (24-32.6); Total Protein 5.2 gm/dL (6.2-8.2)
[2020-01-04] MEDS: SUCRALFATE 1 G/10 ML UDC PO SCH ×2 (06:36→11:50)
[2020-01-04] MEDS: POTASSIUM CHLORIDE 40 MEQ/15 ML LIQUID PO SCH (08:47)
[2020-01-04 09:25] LABS: Hepatitis C Antibody NON-REACTIVE (NON-REACTIVE); Hepatitis Panel Confirmation DNR
[2020-01-04] MEDS: PANTOPRAZOLE SODIUM 40 MG in NORMAL SALINE 100 ML IV SCH (10:10)
[2020-01-04 11:29] LABS: Hepatitis B Surface Antigen NON-REACTIVE (NON-REACTIVE)
[2020-01-04 11:51] LABS: Anion Gap 12.6 mmol/L (6.8-13.8); Carbon Dioxide 27.8 mmol/L (24-32.6); Folate 13.2 ng/mL (8.6-58.9); Potassium 3.4 mmol/L (3.4-4.6)
--- NOTE | 2020-01-04 13:30 | DS ---
(1) Abnormal LFTs Problem: Acute (2) Malnutrition Problem: Chronic Qualifiers: Malnutrition type: protein-calorie malnutrition Protein-calorie malnutrition severity: moderate Qualified Code(s): E44.0 - Moderate protein-ca schuyler malnutrition (3) Orthostatic hypotension Problem: Acute (4) Paroxysmal sinus tachycardia Problem: Acute (5) Weakness Problem: Acute (6) Hypokalemia Problem: Acute (7) Weight loss of more than 10% body weight Problem: Acute (8) COPD mixed type Problem: Chronic (9) Abdominal pain Problem: Acute Qualifiers: Abdominal location: upper abdomen, unspecified Qualified Code(s): R10.10 - Upper abdominal pain, unspecified (10) Dehydration Problem: Acute (11) Anemia Problem: Acute Qualifiers: Anemia type: unspecified type Qualified Code(s): D64.9 - Anemia, unspecified (12) Macrocytosis Problem: Acute Date of Discharge:: 01/04/20 Hospital Course: Lloyd Munroe is a 69-year-old male who presented to ER with weakness and lightheadedness. He was hypotensive with episodic tachycardia and was found to be dehydrated. He also had abnormal liver function tests. He was rehydrated initially in ER and then I gave him another 2 L of normal saline yesterday. He is felt much better since then. His electrolytes were corrected and his reflex tachycardia improved. He had a positive tilt test initially but after being rehydrated his blood pressure only drops slightly and does not meet the criteria for positive orthostatic hypotension. His lightheadedness is gone his appetite has improved. This morning's lab shows liver enzymes have gone up. Overall he is improved enough to go home but there will be a lot more work to do as an outpatient. I believe he will need to see a leaf tier and I will arrange that through the office visit in 1 week. I will repeat his lab work in 1 week as well. Procedures Performed: none Results and Findings: Pending Mircobiology Results 12/31/19 19:11 Blood Blood Culture - Preliminary NO GROWTH AFTER 48 HOURS 12/31/19 18:04 Blood Blood Culture - Preliminary NO GROWTH AFTER 48 HOURS Lab Pending Results 12/31/19 15:34: WBC 8.5, RBC 3.56 L, Hgb 11.8 L, Hct 35.5 L, MCV 99.7, MCH 33.1 H, MCHC 33.2, RDW 13.8, Plt Count 360, MPV 10.5, Immature Gran % (Auto) 0.40, Immature Gran # (Auto) 0.03, Neutrophils % 71.4, Lymphocytes % 19.6 L, Monocytes % 8.1, Eosinophils % 0.1, Basophils % 0.4, Nucleated RBC % 0.0, Neutrophils # 6.1 H, Lymphocytes # 1.66, Monocytes # 0.7, Eosinophils # 0.0, Absolute Basophils 0.0 12/31/19 15:34: Sodium 143 H, Plasma Sodium 143 H, Potassium 2.6 L D, Chloride 95 L, Carbon Dioxide 29.1, Anion Gap 21.5 H, BUN 26 H D, Creatinine 1.42 H D, Est GFR (Non-Af Amer) 53 L D, BUN/Creatinine Ratio 18.3, Random Glucose 117 H, Calcium 7.0 L, Calcium Adj for Albumin 8.5, Total Bilirubin 1.1, AST 229 H, ALT 131 H, Alkaline Phosphatase 520 H, Troponin I 0.029, C-Reactive Prot, Quant 5.7 H, Total Protein 7.1, Albumin 1.7 L, Amylase 43, Lipase 5 L 12/31/19 15:34: D-Dimer 0.66 H 12/31/19 15:34: PT 12.3 H, INR (Anticoag Therapy) 1.25 H, PTT ([place]) 30.0 12/31/19 15:34: B-Natriuretic Peptide 777 H 12/31/19 15:45: Urine Color Dark yellow, Urine Appearance Clear, Urine pH 6.0, Ur Specific [place] 1.025, Urine Protein 15 H, Urine Glucose (UA) Negative, Urine Ketones 15, Urine Blood Negative, Urine Nitrate Positive H, Urine Bilirubin 1 H, Urine Ictotest Negative, Prot Sulfosalicylic Acd Negative, Urine Urobilinogen 4 H, Ur Leukocyte Esterase Negative, Urine RBC 0-5, Urine WBC 5-10 H, Ur Epithelial Cells 0-5, Urine Bacteria 1+ H, Urine Culture Comments Culture to follow 01/01/20 07:23: Sodium 145 H, Plasma Sodium 145 H, Potassium 2.4 L*, Chloride 102, Carbon Dioxide 36.6 H, Anion Gap 8.8, BUN 19, Creatinine 1.11, Est GFR (Non-Af Amer) 70 D, BUN/Creatinine Ratio 17.1, Random Glucose 82, Calcium 6.6 L, Calcium Adj for Albumin 8.5, Total Bilirubin 0.7, AST 126 H, ALT 88 H, Alkaline Phosphatase 398 H, Total Protein 5.5 L, Albumin 1.2 L 01/02/20 06:50: WBC 5.5 D, RBC 3.03 L, Hgb 9.9 L, Hct 29.8 L, MCV 98.3, MCH 32.7 H, MCHC 33.2, RDW 13.8, Plt Count 249, MPV 10.4, Immature Gran % (Auto) 0.20, Immature Gran # (Auto) 0.01, Neutrophils % 58.1, Lymphocytes % 33.6, Monocytes % 7.2, Eosinophils % 0.5, Basophils % 0.4, Nucleated RBC % 0.0, Neutrophils # 3.2, Lymphocytes # 1.86, Monocytes # 0.4, Eosinophils # 0.0, Absolute Basophils 0.0 01/02/20 06:50: Sodium 142, Plasma Sodium 142, Potassium 2.7 L, Chloride 103, Carbon Dioxide 33.1 H, Anion Gap 8.6, BUN 14, Creatinine 1.00, Est GFR (Non-Af Amer) 79, BUN/Creatinine Ratio 14.0, Random Glucose 105, Calcium 6.8 L 01/02/20 21:15: Sodium 138, Plasma Sodium 138, Potassium 3.2 L, Chloride 100, Carbon Dioxide 35.9 H, Anion Gap 5.3 L, BUN 14, Creatinine 1.14, Est GFR (Non-Af Amer) 68, BUN/Creatinine Ratio 12.3, Random Glucose 130 H, Calcium 6.6 L 01/03/20 07:30: WBC 7.4 D, RBC 3.43 L, Hgb 11.5 L, Hct 34.2 L, MCV 99.7, MCH 33.5 H, MCHC 33.6, RDW 13.9, Plt Count 291, MPV 10.4, Immature Gran % (Auto) 0.40, Immature Gran # (Auto) 0.03, Neutrophils % 55.3, Lymphocytes % 35.6, Monocytes % 7.5, Eosinophils % 0.7, Basophils % 0.5, Nucleated RBC % 0.0, Neutrophils # 4.1, Lymphocytes # 2.63, Monocytes # 0.6, Eosinophils # 0.1, Absolute Basophils 0.0 01/03/20 07:30: Sodium 138, Plasma Sodium 138, Potassium 3.2 L, Chloride 97, Carbon Dioxide 32.9 H, Anion Gap 11.3, BUN 13, Creatinine 1.02, Est GFR (Non-Af Amer) 77, BUN/Creatinine Ratio 12.7, Random Glucose 85 D, Calcium 7.0 L 01/03/20 10:14: Hepatitis A IgM Ab Non-reactive, Hep Bs Antigen Non-reactive, Hep B Core IgM Ab Non-reactive, Hepatitis C Antibody Non-reactive, Hep C Ab Signal/Cutoff 0.06, Hepatitis Interpret Dnr 01/04/20 06:11: WBC 5.8 D, RBC 2.60 L, Hgb 8.7 L, Hct 26.2 L, MCV 100.8 H, MCH 33.5 H, MCHC 33.2, RDW 14.2 H, Plt Count 242, MPV 10.6, Immature Gran % (Auto) 0.30, Immature Gran # (Auto) 0.02, Neutrophils % 53.8, Lymphocytes % 34.7, Monocytes % 9.7 H, Eosinophils % 1.2, Basophils % 0.3, Nucleated RBC % 0.0, Chaitanya trophils # 3.1, Lymphocytes # 2.01, Monocytes # 0.6, Eosinophils # 0.1, Absolute Basophils 0.0 01/04/20 06:11: PT 12.7 H, INR (Anticoag Therapy) 1.30 H 01/04/20 06:11: Sodium 141, Plasma Sodium 141, Potassium 3.0 L, Chloride 104, Carbon Dioxide 33.5 H, Anion Gap 6.5 L, BUN 10, Creatinine 0.97, Est GFR (Non-Af Amer) 82, BUN/Creatinine Ratio 10.3, Random Glucose 84, Calcium 6.6 L, Calcium Adj for Albumin 8.7, Total Bilirubin 0.5, AST 144 H, ALT 112 H, Alkaline Phosphatase 452 H, Total Protein 5.2 L, Albumin 1.0 L 01/04/20 11:00: Sodium 142, Potassium 3.4, Chloride 105, Carbon Dioxide 27.8, Anion Gap 12.6, Vitamin B12 1375 H, Folate 13.2 Discharge Location: Home Disposition: Home self-care Condition: Stable Face to Face Encounter completed per [facility] Guidelines: No Discharge Activity: Activity as tolerated Discharge Diet: General/regular food Problem Oriented Discharge Instructions to Patient/Family: Orthostatic Hypotension, Hypokalemia, Dehydration, Adult, [id number] Additional Patient Instructions (free text): F/U appointment with on January 12, 2020 @ 0050. Prescriptions (Any new or edited meds): Omeprazole 20 mg PO BID #60 capsule. Complete Home Medications List: Complete Home Medication List: Omeprazole 20 mg PO BID #60 capsule. 01/04/20 Ondansetron [Zofran Odt] 8 mg PO Q6H PRN #20 tab.rapdis 01/04/20 Potassium Chloride [Potassium Chloride 40 meq/15ml Liquid] 20 meq PO BID #60 tab 01/04/20 Sucralfate [Carafate Suspension] 1 g PO ACHS #60 udc 01/04/20
[2020-01-04 13:56] VITALS: BP 103/55
== END 2020-01-04 13:55 | disposition home or self-care (01) | DRG 682 ==
LOC: ER 15:00 → MS 15:00
PROVIDERS: ADMIT Family Medicine; ATTEND Family Medicine
DX: D75.89 Other specified diseases of blood and blood-forming organs; I47.1 Supraventricular tachycardia; Z68.1 Body mass index [BMI] 19.9 or less, adult; E86.0 Dehydration; N39.0 Urinary tract infection, site not specified; L89.322 Pressure ulcer of left buttock, stage 2; E43 Unspecified severe protein-calorie malnutrition; D64.9 Anemia, unspecified; F17.210 Nicotine dependence, cigarettes, uncomplicated; I10 Essential (primary) hypertension; N17.9 Acute kidney failure, unspecified; I95.1 Orthostatic hypotension; J43.8 Other emphysema; E87.6 Hypokalemia
CPT/HCPCS: 36415; 71020; 71046; 71275; 74019; 74020; 74177; 76705; 80048; 80051; 80053; 80074; 81001; 82150; 82607; 82746; 83519; 83690; 83880; 84484; 85025; 85379; 85610; 85730; 86140; 87040; 87086; 87902; 93005; 96361; 96365; 96375; 97110; 97161; 99285; G0378; J2405; Q9963; Q9967

== ENCOUNTER 2020-03-12 11:06 | Inpatient (IN) ==
[2020-03-12] MEDS ORDERED: LORazepam 2 MG/ML DISP.SYRIN IV ONE (11:26)
--- NOTE | 2020-03-12 11:40 | ERNOTE ---
Dyspnea - General Presenting Symptoms: shortness of breath Time Seen by Provider: 03/12/20 11:17 Source: patient Exam Limitations: no limitations - Immun/Allergies/Home Medications Immunizations: IMMUNIZATION HX Immunizations Up to Date No History of Influenza Vaccine No Hx Pneumococcal Vaccination No Allergies/Adverse Reactions: Allergies No Known Allergies Allergy (Verified 03/12/20 16:26) Home Medications: HOME MEDICATIONS Omeprazole 20 mg PO BID #60 capsule. 01/04/20 [Last Taken Unknown] Ondansetron [Zofran Odt] 8 mg PO Q6H PRN #20 tab.ozzie 01/04/20 [Last Taken Unknown] Potassium Chloride [Potassium Chloride 40 meq/15ml Liquid] 20 meq PO BID #60 tab 01/04/20 [Last Taken Unknown] Sucralfate [Carafate Suspension] 1 g PO ACHS #60 udc 01/04/20 [Last Taken Unknown] - History of Present Illness Narrative: Patient is coming to the ER for shortness of breath and diarrhea. He states he has been short of breath increasingly for a few days, is able to only walk short distances before he has to rest, denies any chest pain, only slight cough. He is a 1 pack a day smoker. He also started to have watery diarrhea this morning, had 3 episode, is not aware of any bleeding, he denies any abdominal pain, admits to nausea, no vomiting. He admits to having been a heavy drinker of 12 beer per day, states that he had cut down to 2 or 3 beers a day for an unspecified amount of time, he has not had any alcohol in 5 or 6 days. When asked why he states that it just did not taste good. Initiating event: Denies: upper resp illness, out of meds Frequency of episodes: Reports: occassional episodes Modifying Factors - (Improves): Reports: rest Modifying Factors (Worsens): Reports: activity Associated Symptoms-Dyspnea: Denies: fever/chills, sweating, chest pain/discomfort Prior Treatment: Denies: recently seen Medical History (Last Reviewed 03/12/20 @ 11:33 by Faith Epperson MD) Cholelithiasis (Chronic) Weight loss of more than 10% body weight (Acute) Essential hypertension (Chronic) COPD mixed type (Chronic) Excessive tearing (Acute) Blepharochalasis left lower eyelid (Chronic) Tobacco abuse (Acute) Hypertension (Chronic) Chronic GERD (Chronic) Onset Date: ~05/31/13 COPD (chronic obstructive pulmonary disease) (Chronic) Onset Date: ~05/31/13 Emphysema lung (Chronic) Pancreatitis Onset Date: ~05/02/16 Chronic Calcific Surgical History: Surgical History (Last Reviewed 03/12/20 @ 11:33 by Faith Epperson MD) H/O colonoscopy Onset Date: ~201308/10/14- repeat 3-5 years for tubular adenoma History of hernia repair History of surgical removal of pilonidal cyst H/O vasectomy Family History: Family History (Last Reviewed 03/12/20 @ 15:08 by Chilo Mcdermott RN) Father , @ age 88 Heart problem Mother , @ age 58 Cancer Unknown kind Social History: (Last Reviewed 03/12/20 @ 15:08 by Chilo Mcdermott RN) Social History: Marital status: household members: children number of children: 3 current occupational status: retired Highest education level completed: high school graduate Service: No Tobacco: Smoking Status: Current every day smoker Alcohol: alcohol intake: former Substance Use: substance use type: does not use Dietary Habits: caffeine: Yes Physical Exam - Physical Exam General Appearance: Present: wd/wn, alert, no apparent distress, thin Head Exam: Present: normal inspection Eye Exam: Normal inspection: bilateral Ears, Nose, Throat: Present: dry mucous membranes Respiratory: Present: no respiratory distress, no accessory muscle use, decreased breath sounds, expiration (prolonged), wheezing - few Cardiovascular/Chest: Present: tachycardia Gastrointestinal/Abdominal: Present: normal bowel sounds, nondistended, soft, tenderness - lower abdomen Back Exam: Present: no CVA tenderness Neurological Exam: Present: alert, oriented, normal mood/affect Skin Exam: Present: normal color, warm/dry, skin rash - skin thickened with excoriation on both arms and abdomen Progress - Results and Orders Patient's Lab Results:: I have reviewed the patient's lab results. - Vital Signs Patient's Vital Signs:: I have reviewed the patient's vital signs. Vital Signs: Vital Signs 03/12/20 11:12 Temperature 36.7 C Pulse Rate 136 H Respiratory Rate 22 H Blood Pressure 98/74 - EKG EKG #1 EKG: NSR - sinustachycardia, nonspecific ST T wave changes EKG read: Interp. by me - X-Ray X-Ray #1 X-Ray: chest - no acute changes Interpretation: Interp. by me, Reviewed by me X-Ray #2 X-Ray: abdomen - no acute changes Interpretation: Interp. by me, Reviewed by me - Progress/Reassessment Chief Complaint: Dyspnea Progress Note-Subjective: 03/12/20 14:27 Patient has been weak, had difficulty standing up by himself Heart rate and blood pressure improved after IV fluids, hand tremor much improved after Ativan 03/12/20 14:34 discussed with hoang Christy to admit for observation for weakness, hyperkaliemia, hypernatremia Departure Clinical Impression: Generalized weakness, Alcoholism /alcohol abuse, Hypokalemia, Hypernatremia Alcohol withdrawal Qualifiers: Complication of substance-induced condition: uncomplicated Qualified Code(s): F10.230 - Alcohol dependence with withdrawal, uncomplicated - Departure Disposition: Still a patient Condition: Stable
[2020-03-12 11:54] LABS: Hematocrit 35.9 % (42.0-52.0); Hemoglobin 11.9 gm/dL (13.5-18.0); Mean Corpuscular Hemoglobin 33.1 pg (27-31); Mean Corpuscular Hgb Conc 33.1 g/dl (32-36); Mean Platelet Volume 11.6 fl (8-11.3); Neutrophil # 3.6 K/mm3 (1.3-6.0); Platelet Count 182 K/mm3 (150-450); Red Blood Count 3.59 M/mm3 (4.7-6.0); Red Cell Distribution Width 13.2 % (11.5-14.0); White Blood Count 7.4 K/mm3 (4.0-10.5)
[2020-03-12] MEDS ORDERED: NORMAL SALINE 1,000 ML IV ONE ×2 (11:57→15:06)
[2020-03-12 12:18] LABS: Albumin * 1.4 gm/dl (3.4-5.0); Anion Gap 15.6 mmol/L (6.8-13.8); BUN/Creatinine Ratio 9.6 (9.0-21.6); Bilirubin, Total 0.5 mg/dL (0.0-1.1); Ca. Corrected For Albumin 9.5 mg/dL (8.4-10.2); Calcium * 7.7 mg/dL (7.9-10.9); Carbon Dioxide 22.4 mmol/L (24-32.6); Total Protein 6.1 gm/dL (6.2-8.2)
[2020-03-12 12:19] LABS: Troponin I 0.039 ng/mL (0.00-0.10)
[2020-03-12 15:29] LABS: Magnesium 1.5 mg/dL (1.2-2.8); Phosphorus 4.3 mg/dL (2.2-4.2)
[2020-03-12] MEDS ORDERED: POTASSIUM CHLORIDE 20 MEQ TABLET.SA PO ONE (15:44)
[2020-03-12] MEDS ORDERED: ACETAMINOPHEN 500 MG TABLET PO PRN (15:44)
[2020-03-12] MEDS ORDERED: ONDANSETRON 8 MG TAB.RAPDIS PO PRN (15:45)
[2020-03-12] MEDS ORDERED: LORazepam 1 MG TABLET PO PRN (15:46)
[2020-03-12] MEDS ORDERED: PERMETHRIN 60 APPL TUBE TP ONE (16:02)
--- NOTE | 2020-03-12 16:26 | HP ---
Chief Complaint - Chief Complaint Date of Service: 03/12/20 Time of Service: 16:07 Chief Complaint: I have weakness and I'm itchy. History of Present Illness: 69-year-old male with past medical history of nicotine dependence, alcoholism, COPD, GERD, hypertension, cholelithiasis, was evaluated in the ER due to generalized weakness, shortness of breath, and ongoing diarrhea that started this morning. Patient reports over the past few days he has felt weak and has had shortness of breath with mild exertion which makes it difficult to walk short distances. Patient also reported that this morning he had 3 episodes of nonbloody diarrhea that has left him drained. He was noted to be weak and unsteady on his feet while in the ER, shortly after the patient stumbled unprovoked and fell. Patient reports that he has been drinking for multiple years but has refrained from alcohol intake over the past 5 to 6 days. On observation he is noted to have a generalized tremor most likely due to alcohol withdrawal. He was treated with Ativan in the ER for the alcohol withdrawal. Work-up in the ER revealed electrolyte imbalance due to hypokalemia and hypernatremia, she also has acute kidney injury indicated by elevated levels of creatinine and BUN. It is very likely that the patient is significantly dehydrated which would explain the acute kidney injury. Of note he has a generalized pruritic rash on his trunk and upper extremities, this appears to be scabies therefore during the admission patient will be treated with permethrin cream. Patient lives alone and appears to have a very poor social situation, he is disheveled, and has poor hygiene. Currently he is saturating adequately on room air and appears to be comfortable. We will keep her overnight for IV hydration and potassium replacement to address his electrolyte imbalance. His records show that he has a history of cholelithiasis which might explain the elevated alkaline phosphatase on lab, however at the moment he denies any abdominal pain and does not present tenderness to palpation. He also has elevated BNP but outside of mild inspiratory wheezing there was no crackles nor does he have pedal edema that would indicate decompensated CHF. Medical History (Last Reviewed 03/12/20 @ 15:08 by Chilo Mcdermott RN) Cholelithiasis (Chronic) Weight loss of more than 10% body weight (Acute) Essential hypertension (Chronic) COPD mixed type (Chronic) Excessive tearing (Acute) Blepharochalasis left lower eyelid (Chronic) Tobacco abuse (Acute) Hypertension (Chronic) Chronic GERD (Chronic) Onset Date: ~05/31/13 COPD (chronic obstructive pulmonary disease) (Chronic) Onset Date: ~05/31/13 Emphysema lung (Chronic) Pancreatitis Onset Date: ~05/02/16 Chronic Calcific Surgical History: Surgical History (Last Reviewed 03/12/20 @ 15:08 by Chilo Mcdermott RN) H/O colonoscopy Onset Date: ~201308/10/14- repeat 3-5 years for tubular adenoma History of hernia repair History of surgical removal of pilonidal cyst H/O vasectomy Family History: Family History (Last Reviewed 03/12/20 @ 15:08 by Chilo Mcdermott RN) Father , @ age 88 Heart problem Mother , @ age 58 Cancer Unknown kind Social History: (Last Reviewed 03/12/20 @ 15:08 by Chilo Mcdermott RN) Social History: Marital status: household members: children number of children: 3 current occupational status: retired Highest education level completed: high school graduate Service: No Tobacco: Smoking Status: Current every day smoker Alcohol: alcohol intake: former Substance Use: substance use type: does not use Dietary Habits: caffeine: Yes Peds Patient Hx - Developmental: No Pertinent Hx Peds Patient Hx - Medical: No Pertinent Hx Peds Patient Hx - Cardiac/Respiratory: No Pertinent Hx Peds Patient Hx - Surgical: No Surgical History Patient History - Cancer: No Hx of Cancer Review Of Systems (GEN) - Review of Systems Generalized/Overall Review: Present: Weakness, Fatigue, Weight loss EENTM: Present: No Symptoms Reported Respiratory: Present: Shortness of Breath Cardiac: Present: No Symptoms Reported Abdominal: Present: Diarrhea Genitourinary: Present: No Symptoms Reported Musculoskeletal: Present: No Symptoms Reported Neurological: Present: Tremors, Pre-existing Deficit Skin: Present: Other - Pruritic rash on thorax and upper extremities Endocrine: Present: No Symptoms Reported Immunizations: IMMUNIZATION HX Immunizations Up to Date No History of Influenza Vaccine No Hx Pneumococcal Vaccination No Allergies/Adverse Reactions: Allergies Allergy/AdvReac Type Severity Reaction Status Date / Time No Known Allergies Allergy Verified 01/04/20 15:11 Home Medications: HOME MEDICATIONS Omeprazole 20 mg PO BID #60 capsule. 01/04/20 [Last Taken Unknown] Ondansetron [Zofran Odt] 8 mg PO Q6H PRN #20 tab.rapdis 01/04/20 [Last Taken Unknown] Potassium Chloride [Potassium Chloride 40 meq/15ml Liquid] 20 meq PO BID #60 tab 01/04/20 [Last Taken Unknown] Sucralfate [Carafate Suspension] 1 g PO ACHS #60 udc 01/04/20 [Last Taken Unknown] Exam - Exam Vital Signs: Vital Signs - Last Taken Temp 36.7 C 03/12/20 11:12 Pulse 106 H 03/12/20 15:00 Resp 16 03/12/20 15:00 BP 105/70 03/12/20 15:00 Pulse Ox 100 03/12/20 15:00 Constitutional: Present: Alert, Oriented x3, Cooperative, No distress, Elderly, Thin and frail, Looks Older than stated age ENT Exam: Present: normal ENT inspection, hearing grossly normal Eye Exam: bilateral eye: normal inspection, PERRL, EOMI Neck: Present: non-tender, full range of motion, supple, normal inspection, trachea midline Back Exam: Present: normal inspection, no CVA tenderness, no vertebral tenderness Breasts: Present: Exam deferred Respiratory: Present: chest non-tender, no respiratory distress, no accessory muscle use, wheezing Cardiovascular/Chest: Present: normal peripheral pulses, regular rate, rhythm, no chest tenderness, no edema, no gallop, no JVD, no murmur, no rub Peripheral Pulses: carotid (R): 3+, carotid (L): 3+, femoral (R): 3+, femoral (L): 3+, dorsalis-pedis (R): 2+, dorsalis-pedis (L): 2+ Abdomen: Present: Normal bowel sounds, soft, nontender, nondistended, no rebound tenderness, no hepatospenomegaly, no masses /Rectal: Present: Exam deferred Extremity: Present: normal range of motion, non-tender, normal inspection, no pedal edema, no calf tenderness, normal capillary refill Skin Exam: Present: normal color, warm/dry, no cyanosis, skin rash - Pruritic punctate rash with excoriation on upper extremities and thorax Lymphatic: Present: no adenopathy 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: 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: 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, no motor/sensory deficits, alert, depressed affect, other - Generalized tremor Appearance: Present: appropriate appearance, appropriate insight, no memory impairment, disheveled, other - Poor hygiene and dirty clothes Eye contact: Present: cooperative, good eye contact, normal speech Thoughts: Present: normal thought pattern, no apparent hallucination Diagnostic Studies: Abnormal Lab Results 03/12/20 03/12/20 Range/Units 11:47 11:47 RBC 3.59 L (4.7-6.0) M/mm3 Hgb 11.9 L (13.5-18.0) gm/dL Hct 35.9 L (42.0-52.0) % MCH 33.1 H (27-31) pg MPV 11.6 H (8-11.3) fl Eosinophils % 3.7 H (0.0-3.0) % Sodium 145 H (132-142) mmol/L Plasma Sodium 146 H (130-142) mmol/L Potassium 3.0 L (3.4-4.6) mmol/L Chloride 110 H (97-106) mmol/L Carbon Dioxide 22.4 L (24-32.6) mmol/L Anion Gap 15.6 H (6.8-13.8) mmol/L Creatinine 1.88 H D (0.4-1.4) mg/dL Est GFR (Non-Af Amer) 38 L D (60-130) mL/min Random Glucose 133 H (70-110) mg/dL Calcium 7.7 L (7.9-10.9) mg/dL Alkaline Phosphatase 250 H (50-170) U/L B-Natriuretic Peptide 2032 H (5-350) pg/mL Total Protein 6.1 L (6.2-8.2) gm/dL Albumin 1.4 L (3.4-5.0) gm/dl Lipase 5 L (73-393) U/L Laboratory Results WBC 7.4 K/mm3 (4.0-10.5) 03/12/20 11:47 RBC 3.59 M/mm3 (4.7-6.0) L 03/12/20 11:47 Hgb 11.9 gm/dL (13.5-18.0) L 03/12/20 11:47 Hct 35.9 % (42.0-52.0) L 03/12/20 11:47 MCV 100.0 fl (78-100) 03/12/20 11:47 MCH 33.1 pg (27-31) H 03/12/20 11:47 MCHC 33.1 g/dl (32-36) 03/12/20 11:47 RDW 13.2 % (11.5-14.0) 03/12/20 11:47 Plt Count 182 K/mm3 (150-450) 03/12/20 11:47 MPV 11.6 fl (8-11.3) H 03/12/20 11:47 Immature Gran % (Auto) 0.40 % (0.001-0.429) 03/12/20 11:47 Immature Gran # (Auto) 0.03 K/mm3 (0.000-0.0310) 03/12/20 11:47 Neutrophils % 49.0 % (42-75.0) 03/12/20 11:47 Lymphocytes % 41.1 % (20-51) 03/12/20 11:47 Monocytes % 5.0 % (0.0-9) 03/12/20 11:47 Eosinophils % 3.7 % (0.0-3.0) H 03/12/20 11:47 Basophils % 0.8 % (0.0-1.0) 03/12/20 11:47 Nucleated RBC % 0.0 k/mm3 (0-1) 03/12/20 11:47 Neutrophils # 3.6 K/mm3 (1.3-6.0) 03/12/20 11:47 Lymphocytes # 3.03 k/mm3 (1.5-3.5) 03/12/20 11:47 Monocytes # 0.4 k/mm3 (0.0-1.0) 03/12/20 11:47 Eosinophils # 0.3 k/mm3 (0.0-0.7) 03/12/20 11:47 Absolute Basophils 0.1 k/mm3 (0.0-0.1) 03/12/20 11:47 Sodium 145 mmol/L (132-142) H 03/12/20 11:47 Plasma Sodium 146 mmol/L (130-142) H 03/12/20 11:47 Potassium 3.0 mmol/L (3.4-4.6) L 03/12/20 11:47 Chloride 110 mmol/L (97-106) H 03/12/20 11:47 Carbon Dioxide 22.4 mmol/L (24-32.6) L 03/12/20 11:47 Anion Gap 15.6 mmol/L (6.8-13.8) H 03/12/20 11:47 BUN 18 mg/dL (6-23) 03/12/20 11:47 Creatinine 1.88 mg/dL (0.4-1.4) H D 03/12/20 11:47 Est GFR (Non-Af Amer) 38 mL/min (60-130) L D 03/12/20 11:47 BUN/Creatinine Ratio 9.6 (9.0-21.6) 03/12/20 11:47 Random Glucose 133 mg/dL (70-110) H 03/12/20 11:47 Calcium 7.7 mg/dL (7.9-10.9) L 03/12/20 11:47 Calcium Adj for Albumin 9.5 mg/dL (8.4-10.2) 03/12/20 11:47 Total Bilirubin 0.5 mg/dL (0.0-1.1) 03/12/20 11:47 AST 45 U/L (0-48) 03/12/20 11:47 ALT 50 U/L (19-67) 03/12/20 11:47 Alkaline Phosphatase 250 U/L (50-170) H 03/12/20 11:47 Ammonia Less than 17.0 mcmol/L (11-35) 03/12/20 11:47 Troponin I 0.039 ng/mL (0.00-0.10) 03/12/20 11:47 B-Natriuretic Peptide 2032 pg/mL (5-350) H 03/12/20 11:47 Total Protein 6.1 gm/dL (6.2-8.2) L 03/12/20 11:47 Albumin 1.4 gm/dl (3.4-5.0) L 03/12/20 11:47 Amylase 44 U/L (25-115) 03/12/20 11:47 Lipase 5 U/L (73-393) L 03/12/20 11:47 Ethyl Alcohol 3.0 mg/dL (0.0-10.0) 03/12/20 11:47 Assessment/Plan - Narrative Narrative: Patient was evaluated medical chart was reviewed and decision to admit for dehydration due to diarrhea, scabies, hypokalemia, hypernatremia, acute kidney injury was made. Permethrin has been ordered to treat the patient's apparent scabies, will put him in contact isolation and make nursing staff aware of the infestation. Patient continues to have a very noticeable tremor most likely due to alcohol withdrawal, therefore Ativan has been ordered to cover for delirium tremens or any complications from alcohol withdrawal. Potassium replacement as well as IV hydration have been ordered order to address his dehydration and electrolyte imbalance, follow-up labs have been ordered for tomorrow morning for reevaluation. At the moment patient denies any dyspnea or chest pain so cardiac abnormality is not suspected despite the elevated BNP. We will keep him on telemetry and continue to monitor him closely. - Assessment/Plan (1) CHARITY (acute kidney injury) Problem: Acute (2) Weakness Problem: Acute (3) Hypokalemia Problem: Acute (4) Malnutrition Problem: Chronic Qualifiers: (5) Hypernatremia Problem: Acute (6) Dehydration Problem: Acute (7) Diarrhea Problem: Acute (8) Elevated brain natriuretic peptide (BNP) level Problem: Acute (9) COPD (chronic obstructive pulmonary disease) Problem: Acute (10) Alcoholism /alcohol abuse Problem: Chronic (11) Alcohol withdrawal Problem: Acute (12) Tremor Problem: Acute (13) Scabies infestation Problem: Acute
[2020-03-12] MEDS: MULTIVIT INFUSN,ADULT 4,VIT K 10 ML, THIAMINE HCL 100 MG in NORMAL SALINE 1,000 ML IV SCH (17:49)
[2020-03-12] MEDS: POTASSIUM CHLORIDE IN WATER 100 ML IV SCH ×4 (17:57→21:44)
[2020-03-12] MEDS: SUCRALFATE 1 G/10 ML UDC PO SCH ×2 (20:30)
[2020-03-12] MEDS: THIAMINE HCL 100 MG TABLET PO SCH (20:30)
[2020-03-12] MEDS: PANTOPRAZOLE SODIUM 40 MG in NORMAL SALINE 100 ML IV SCH (21:13)
[2020-03-12 21:53] LABS: Urine Bilirubin Negative (NEGATIVE); Urine Blood 50 /ul (NEGATIVE); Urine Ketone Negative (NEGATIVE); Urine Nitrite Negative (NEGATIVE); Urine Protein 15 mg/dL (NEGATIVE); Urine Specific Gravity 1.015 SP.GR. (1.005-1.030); Urine Urobilinogen Normal (NORMAL); Urine pH 6.5 pH (5.0-7.0)
[2020-03-12 21:59] LABS: Urine Appearance Clear (CLEAR); Urine Bacteria None Seen; Urine Color Amber; Urine WBC None Seen /hpf (0-5)
[2020-03-13] MEDS: MULTIVIT INFUSN,ADULT 4,VIT K 10 ML, THIAMINE HCL 100 MG in NORMAL SALINE 1,000 ML IV SCH ×2 (00:52→10:13)
[2020-03-13] MEDS: PANTOPRAZOLE SODIUM 40 MG in NORMAL SALINE 100 ML IV SCH ×2 (04:40→18:47)
[2020-03-13] MEDS: SUCRALFATE 1 G/10 ML UDC PO SCH ×4 (06:36→20:25)
[2020-03-13 07:05] LABS: Albumin * 1.3 gm/dl (3.4-5.0); Anion Gap 12.9 mmol/L (6.8-13.8); BUN/Creatinine Ratio 9.3 (9.0-21.6); Bilirubin, Total 0.4 mg/dL (0.0-1.1); Ca. Corrected For Albumin 8.5 mg/dL (8.4-10.2); Calcium * 6.7 mg/dL (7.9-10.9); Carbon Dioxide 21.4 mmol/L (24-32.6); Potassium 4.3 mmol/L (3.4-4.6); Total Protein 5.3 gm/dL (6.2-8.2)
[2020-03-13] MEDS: THIAMINE HCL 100 MG TABLET PO SCH (08:23)
[2020-03-13] MEDS ORDERED: DEXTROSE 50%-WATER 50 ML SYRG ONE (08:30)
[2020-03-13] MEDS ORDERED: DEXTROSE 50%-WATER 50 ML SYRG IV ONE (08:43)
[2020-03-13] MEDS ORDERED: DEXTROSE 4 GM/TAB BTL ONE (08:53)
[2020-03-13] MEDS ORDERED: GLUCAGON,HUMAN RECOMBINANT 1 MG VIAL ONE ×2 (08:58→17:18)
[2020-03-13] MEDS ORDERED: PERMETHRIN 60 APPL TUBE TP ONE (09:00)
[2020-03-13] MEDS ORDERED: GLUCAGON,HUMAN RECOMBINANT 1 MG VIAL IM ONE ×2 (09:03→17:19)
--- NOTE | 2020-03-13 09:49 | PN ---
Subjective - Date and Time Seen Date: 03/13/20 Time: 09:37 Subjective Narrative: I still feel weak and have little appetite. Objective Objective Narrative: 69-year-old male admitted for dehydration, CHARITY, severe malnourishment, and alcohol withdrawal was evaluated at bedside and was found to be afebrile and in no acute distress. Patient had an uneventful night while receiving IV hydration but had an episode of significant hypoglycemia this morning. He was treated with multiple ampules of dextrose and initially got better but had a number drop in blood sugars. Patient was then administered glucagon, since then he has stable sugar levels and is completely asymptomatic from hypoglycemia. Patient still has his tremor but has not had any alcohol withdrawal seizures. This morning encouraged him to increase his oral intake and try to eat, he says he does not have much of an appetite for solids but is able to do liquids. Labs this morning reveal improvement of his electrolytes, in fact his hypokalemia has completely resolved after receiving potassium replacements. Kidney function is also improving in response to the IV hydration. However we will keep patient for an additional day for close monitoring with periodic glucose checks and for lab recheck in the morning to look at electrolytes. Of importance patient was diagnosed with a scabies infection so permethrin was ordered. We will continue to monitor blood sugars as well as vitals. - Review of Systems Generalized/Overall Review: Reports: No Symptoms Reported EENTM: Reports: No Symptoms Reported Respiratory: Reports: No Symptoms Reported Cardiac: Reports: No Symptoms Reported Abdominal: Reports: No Symptoms Reported Genitourinary Symptoms: Reports: No Symptoms Reported Musculoskeletal Complaints: Reports: No Symptoms Reported Neurological: Reports: Tremors Skin: Reports: Rash, Other - Itchiness Endocrine: Reports: Other - Multiple episodes of hypoglycemia while on MedSurg - Vitals Vitals: Last Vital Signs Temp 36.2 C 03/13/20 07:03 Pulse 109 H 03/13/20 07:03 Resp 20 03/13/20 07:03 BP 98/59 03/13/20 07:03 Pulse Ox 98 03/13/20 07:03 - Abnormal Lab Findings Abnormal Lab Findings: Abnormal Lab Results 03/12/20 03/12/20 03/12/20 Range/Units 11:47 11:47 11:47 RBC 3.59 L (4.7-6.0) M/mm3 Hgb 11.9 L (13.5-18.0) gm/dL Hct 35.9 L (42.0-52.0) % MCH 33.1 H (27-31) pg MPV 11.6 H (8-11.3) fl Eosinophils % 3.7 H (0.0-3.0) % Sodium 145 H (132-142) mmol/L Plasma Sodium 146 H (130-142) mmol/L Potassium 3.0 L (3.4-4.6) mmol/L Chloride 110 H (97-106) mmol/L Carbon Dioxide 22.4 L (24-32.6) mmol/L Anion Gap 15.6 H (6.8-13.8) mmol/L Creatinine 1.88 H D (0.4-1.4) mg/dL Est GFR (Non-Af Amer) 38 L D (60-130) mL/min Random Glucose 133 H (70-110) mg/dL Calcium 7.7 L (7.9-10.9) mg/dL Phosphorus 4.3 H (2.2-4.2) mg/dL AST (0-48) U/L Alkaline Phosphatase 250 H (50-170) U/L B-Natriuretic Peptide 2032 H (5-350) pg/mL Total Protein 6.1 L (6.2-8.2) gm/dL Albumin 1.4 L (3.4-5.0) gm/dl Lipase 5 L (73-393) U/L Urine Protein (NEGATIVE) mg/dL Urine Blood (NEGATIVE) /ul Urine RBC (0-5) /hpf 03/12/20 03/13/20 03/13/20 Range/Units 21:40 06:10 09:19 RBC (4.7-6.0) M/mm3 Hgb (13.5-18.0) gm/dL Hct (42.0-52.0) % MCH (27-31) pg MPV (8-11.3) fl Eosinophils % (0.0-3.0) % Sodium 145 H (132-142) mmol/L Plasma Sodium 144 H (130-142) mmol/L Potassium (3.4-4.6) mmol/L Chloride 115 H (97-106) mmol/L Carbon Dioxide 21.4 L (24-32.6) mmol/L Anion Gap (6.8-13.8) mmol/L Creatinine 1.61 H (0.4-1.4) mg/dL Est GFR (Non-Af Amer) 46 L D (60-130) mL/min Random Glucose 39 L D 310 H D (70-110) mg/dL Calcium 6.7 L (7.9-10.9) mg/dL Phosphorus (2.2-4.2) mg/dL AST 55 H (0-48) U/L Alkaline Phosphatase 207 H (50-170) U/L B-Natriuretic Peptide (5-350) pg/mL Total Protein 5.3 L (6.2-8.2) gm/dL Albumin 1.3 L (3.4-5.0) gm/dl Lipase (73-393) U/L Urine Protein 15 H (NEGATIVE) mg/dL Urine Blood 50 H (NEGATIVE) /ul Urine RBC 10-25 H (0-5) /hpf - Exam Constitutional: Present: Alert, Oriented x3, Cooperative, Well developed, No distress, Elderly, Thin and frail, Looks Older than stated age ENT Exam: Present: normal ENT inspection, hearing grossly normal, pharynx normal, TMs normal Neck: Present: non-tender, full range of motion, supple, normal inspection, trachea midline Breasts: Present: Exam deferred Respiratory: Present: chest non-tender, lungs clear, normal breath sounds, no respiratory distress, no accessory muscle use Cardiovascular/Chest: Present: normal peripheral pulses, regular rate, rhythm, no chest tenderness, no edema, no gallop, no JVD, no murmur, no rub Abdomen: Present: Normal bowel sounds, soft, nontender, nondistended, no rebound tenderness, no hepatospenomegaly, no masses /Rectal: Present: Exam deferred Extremity: Present: normal range of motion, non-tender, normal inspection, no pedal edema, no calf tenderness, normal capillary refill, pelvis stable Skin Exam: Present: normal color, warm/dry, no cyanosis, skin rash - Pruritic rash with excoriations on torso upper and lower extremities Lymphatic: Present: no adenopathy 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 Currently he appears comfortable and denies any symptoms, the patient is oriented x3 but still has tremor possibly due to his alcohol withdrawal. We have ordered CMP for reevaluation of electrolytes and renal functions for tomorrow morning, in the meantime we will continue to encourage oral intake and if necessary start the patient on dextrose drip to prevent recurrence of hypoglycemia. - Problems/Diagnosis (1) CHARITY (acute kidney injury) Problem: Acute (2) Weakness Problem: Acute (3) Hypokalemia Problem: Acute (4) Malnutrition Problem: Chronic Qualifiers: (5) Hypernatremia Problem: Acute (6) Dehydration Problem: Acute (7) Diarrhea Problem: Acute (8) Elevated brain natriuretic peptide (BNP) level Problem: Acute (9) COPD (chronic obstructive pulmonary disease) Problem: Acute (10) Alcoholism /alcohol abuse Problem: Chronic (11) Alcohol withdrawal Problem: Acute Qualifiers: Complication of substance-induced condition: uncomplicated Qualified Code(s): F10.230 - Alcohol dependence with withdrawal, uncomplicated (12) Tremor Problem: Acute (13) Scabies infestation Problem: Acute (14) Hypoglycemia Problem: Acute
[2020-03-13] MEDS: DEXTROSE 5 % IN WATER 1,000 ML IV PRN (18:48)
[2020-03-14] MEDS: PANTOPRAZOLE SODIUM 40 MG in NORMAL SALINE 100 ML IV SCH ×2 (03:21→17:44)
[2020-03-14 06:47] LABS: Anion Gap 11.8 mmol/L (6.8-13.8); BUN/Creatinine Ratio 9.6 (9.0-21.6); Bilirubin, Total 0.2 mg/dL (0.0-1.1); Ca. Corrected For Albumin 8.9 mg/dL (8.4-10.2); Calcium * 6.8 mg/dL (7.9-10.9); Carbon Dioxide 20.8 mmol/L (24-32.6); Potassium 3.6 mmol/L (3.4-4.6); Total Protein 4.4 gm/dL (6.2-8.2)
[2020-03-14] MEDS: DEXTROSE 5 % IN WATER 1,000 ML IV PRN ×2 (07:04→23:11)
[2020-03-14] MEDS: SUCRALFATE 1 G/10 ML UDC PO SCH ×4 (07:06→20:10)
[2020-03-14] MEDS: THIAMINE HCL 100 MG TABLET PO SCH (10:04)
[2020-03-14] MEDS: MULTIVIT INFUSN,ADULT 4,VIT K 10 ML, THIAMINE HCL 100 MG in NORMAL SALINE 1,000 ML IV SCH (11:30)
--- NOTE | 2020-03-14 11:53 | PN ---
Subjective - Date and Time Seen Date: 03/14/20 Time: 11:39 Subjective Narrative: I'm just not hungry. Objective Objective Narrative: 69-year-old male admitted for dehydration, CHARITY, severe malnourishment, and alcohol withdrawal was evaluated at bedside and was found to be afebrile but confused. During this morning rounds patient insisted that he is currently in his home and had to be reminded that he is in the hospital, he became irritated when he heard this. I am not sure if this is new for the patient or if he has chronic fluctuations in his mental status due to his chronic alcohol consumption. He continues to show poor appetite and only drinks beverages. As a result of this he has not been maintaining his blood sugars and had to be started on a continuous dextrose infusion. The seed cleaning manager was consulted for evaluation and recommendation on appropriate diet for the patient based on his food preferences. The patient lives alone and appears to have poor social support, he came in with a scabies infestation and with poor hygiene. I suspect his living conditions are not up to par. We will have to look into this further to ensure that he eats adequately and takes his medications as prescribed. On another note labs demonstrate resolution of his hypokalemia and improvement of his hyponatremia and his renal function has remained stable. He does however have an increasing AST most likely due to his alcoholism since he does not present any abdominal tenderness or pain. - Review of Systems Generalized/Overall Review: Reports: Weakness EENTM: Reports: No Symptoms Reported Respiratory: Reports: No Symptoms Reported Cardiac: Reports: No Symptoms Reported Abdominal: Reports: No Symptoms Reported Genitourinary Symptoms: Reports: No Symptoms Reported Musculoskeletal Complaints: Reports: No Symptoms Reported Neurological: Reports: Other - Px is confused Skin: Reports: No Symptoms Reported Endocrine: Reports: Other - Hypoglycemia - Vitals Vitals: Last Vital Signs Temp 36.2 C 03/14/20 09:56 Pulse 86 03/14/20 09:56 Resp 16 03/14/20 09:56 BP 104/60 03/14/20 09:56 Pulse Ox 100 03/14/20 09:56 - Abnormal Lab Findings Abnormal Lab Findings: Abnormal Lab Results 03/14/20 Range/Units 06:29 Sodium 143 H (132-142) mmol/L Plasma Sodium 143 H (130-142) mmol/L Chloride 114 H (97-106) mmol/L Carbon Dioxide 20.8 L (24-32.6) mmol/L Creatinine 1.67 H (0.4-1.4) mg/dL Est GFR (Non-Af Amer) 44 L (60-130) mL/min Calcium 6.8 L (7.9-10.9) mg/dL AST 59 H (0-48) U/L Alkaline Phosphatase 188 H (50-170) U/L Total Protein 4.4 L (6.2-8.2) gm/dL Albumin 1.0 L (3.4-5.0) gm/dl - Exam Constitutional: Present: Alert, Cooperative, Well developed, No distress, Moderate distress, Elderly, Thin and frail, Looks Older than stated age ENT Exam: Present: normal ENT inspection, hearing grossly normal, pharynx normal, TMs normal Neck: Present: non-tender, full range of motion, supple, normal inspection, trachea midline, limited range of motion Breasts: Present: Exam deferred Respiratory: Present: chest non-tender, lungs clear, normal breath sounds, no respiratory distress, no accessory muscle use Cardiovascular/Chest: Present: normal peripheral pulses, regular rate, rhythm, no chest tenderness, no edema, no gallop, no JVD, no murmur, no rub Abdomen: Present: Normal bowel sounds, soft, nontender, nondistended, no rebound tenderness, no hepatospenomegaly, no masses /Rectal: Present: Exam deferred Extremity: Present: normal range of motion, non-tender, normal inspection, no pedal edema, no calf tenderness, normal capillary refill, pelvis stable Skin Exam: Present: normal color, warm/dry, no cyanosis, skin rash Lymphatic: Present: no adenopathy Neurologic: 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 We will keep the patient on the dextrose drip to maintain blood sugars since his blood sugars continue to drop when he is off the drip. As far as patient's appetite we are making progress, because nursing staff report that he had a substantial breakfast this morning that was rich in carbs and calories. We will continue to encourage this in order to nourish the patient and maintain blood sugars. Dietitian was also consulted for evaluation and recommendations on diet. Patient appeared confused this morning and did not know where he was, we are not sure if this is new for him but neurologic exam did not yield any new deficits. Therefore we will monitor him for now and reevaluate in the morning. - Problems/Diagnosis (1) CHARITY (acute kidney injury) Problem: Acute (2) Weakness Problem: Acute (3) Hypokalemia Problem: Acute (4) Malnutrition Problem: Chronic Qualifiers: (5) Hypernatremia Problem: Acute (6) Dehydration Problem: Acute (7) Diarrhea Problem: Acute (8) Elevated brain natriuretic peptide (BNP) level Problem: Acute (9) COPD (chronic obstructive pulmonary disease) Problem: Acute (10) Alcoholism /alcohol abuse Problem: Chronic (11) Alcohol withdrawal Problem: Acute Qualifiers: Complication of substance-induced condition: uncomplicated Qualified Code(s): F10.230 - Alcohol dependence with withdrawal, uncomplicated (12) Tremor Problem: Acute (13) Scabies infestation Problem: Acute (14) Hypoglycemia Problem: Acute (15) Elevated SGOT (AST) Problem: Acute
--- NOTE | 2020-03-14 14:54 | ANES ---
Anesthesia Procedure Note Procedure Note: ANESTHESIA PROCEDURE NOTE Date of Procedure: 03/14/2020. Time of procedure: 1400. Performed by: Mike Soares CRNA Medical Director/Head Team Physician: None. Preprocedure diagnosis: Difficult IV access. Post procedure diagnosis: Same. Procedure: Peripheral vein IV insertion. Indications: There is a 69-year-old male where multiple attempts have failed per hospital staff. Findings: See below. Details of the procedure: Skin over the intended target site was cleansed with alcohol. A 22-gauge IV catheter was inserted into a right hand vein. A sterile dressing was applied over the insertion site. The line was then flushed with sterile saline solution. EBL: Minimal. Fluids: N/A. Specimen: N/A. Post procedure condition: The patient tolerated the procedure well. No complications were noted. Thank you for this consultation. Mike Soares CRNA
[2020-03-15] MEDS: PANTOPRAZOLE SODIUM 40 MG in NORMAL SALINE 100 ML IV SCH ×2 (04:01→16:16)
[2020-03-15 06:42] LABS: Albumin * 0.8 gm/dl (3.4-5.0); Anion Gap 12.5 mmol/L (6.8-13.8); BUN/Creatinine Ratio 10.4 (9.0-21.6); Bilirubin, Total 0.2 mg/dL (0.0-1.1); Ca. Corrected For Albumin 9.3 mg/dL (8.4-10.2); Calcium * 7.1 mg/dL (7.9-10.9); Carbon Dioxide 20.9 mmol/L (24-32.6); Potassium 3.4 mmol/L (3.4-4.6); Total Protein 4.4 gm/dL (6.2-8.2)
[2020-03-15] MEDS: SUCRALFATE 1 G/10 ML UDC PO SCH ×4 (07:22→20:40)
[2020-03-15] MEDS: THIAMINE HCL 100 MG TABLET PO SCH (08:28)
[2020-03-15] MEDS: MULTIVIT INFUSN,ADULT 4,VIT K 10 ML, THIAMINE HCL 100 MG in NORMAL SALINE 1,000 ML IV SCH (09:24)
--- NOTE | 2020-03-15 09:47 | PN ---
Subjective - Date and Time Seen Date: 03/15/20 Time: 09:37 Subjective Narrative: Suggestion I feel fine. Objective Objective Narrative: 69-year-old male admitted for dehydration, CHARITY, severe malnourishment, Scabies infestation, and alcohol withdrawal was evaluated at bedside and was found to be afebrile and in no acute distress. Patient appears more alert and cooperative this morning, he is also more lucid. Nursing staff has been having issues with him pulling out his IV, in fact he has pulled out 3 times so far. Anesthesia had to be called yesterday afternoon in order to reinsert the IV due to difficulty finding a vein. When asked the patient says he does not know why he was at the IV and does not mean to. He has been maintaining glucose levels and is now eating better than before. Ensure was added to his diet yesterday for additional calories and nutrition and he seems to like it. Consult to the dietitian has been placed since yesterday we are awaiting her recommendations on food preferences in an ideal diet for him in order to address his severe malnourishment. As far as alcohol withdrawal the patient continues to have a tremor which I am not sure whether or not it is new for him but it is possible is from the withdrawals. There has been no seizures or other neurological events during the hospitalization so far. We will continue to monitor him. - Review of Systems Generalized/Overall Review: Reports: Weakness EENTM: Reports: No Symptoms Reported Respiratory: Reports: No Symptoms Reported Cardiac: Reports: No Symptoms Reported Abdominal: Reports: No Symptoms Reported Genitourinary Symptoms: Reports: No Symptoms Reported Musculoskeletal Complaints: Reports: No Symptoms Reported Neurological: Reports: Tremors, Pre-existing Deficit Skin: Reports: Rash Endocrine: Reports: No Symptoms Reported - Vitals Vitals: Last Vital Signs Temp 36.3 C 03/15/20 06:42 Pulse 110 H 03/15/20 06:42 Resp 20 03/15/20 06:42 BP 98/66 03/15/20 06:42 Pulse Ox 100 03/15/20 06:42 - Abnormal Lab Findings Abnormal Lab Findings: Abnormal Lab Results 03/15/20 Range/Units 06:25 Sodium 143 H (132-142) mmol/L Plasma Sodium 143 H (130-142) mmol/L Chloride 113 H (97-106) mmol/L Carbon Dioxide 20.9 L (24-32.6) mmol/L Creatinine 1.54 H (0.4-1.4) mg/dL Est GFR (Non-Af Amer) 48 L (60-130) mL/min Calcium 7.1 L (7.9-10.9) mg/dL AST 58 H (0-48) U/L Alkaline Phosphatase 195 H (50-170) U/L Total Protein 4.4 L (6.2-8.2) gm/dL Albumin 0.8 L (3.4-5.0) gm/dl - Exam Constitutional: Present: Alert, Cooperative, Well developed, No distress, Elderly, Thin and frail, Looks Older than stated age ENT Exam: Present: normal ENT inspection, hearing grossly normal Neck: Present: non-tender, full range of motion, supple, normal inspection, trachea midline Breasts: Present: Exam deferred Respiratory: Present: chest non-tender, lungs clear, normal breath sounds, no respiratory distress, no accessory muscle use Cardiovascular/Chest: Present: normal peripheral pulses, regular rate, rhythm, no chest tenderness, no edema, no gallop, no JVD, no murmur, no rub Abdomen: Present: Normal bowel sounds, soft, nontender, nondistended, no rebound tenderness, no hepatospenomegaly, no masses /Rectal: Present: Exam deferred Extremity: Present: normal range of motion, non-tender, normal inspection, no pedal edema, no calf tenderness, normal capillary refill, pelvis stable Skin Exam: Present: skin rash Lymphatic: Present: no adenopathy Neurologic: Present: 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 Discharge planning is being discussed with the patient's daughter and she has expressed a desire for him to be discharged to a care facility. Placement is currently being sought by director of casework department. - Problems/Diagnosis (1) CHARITY (acute kidney injury) Problem: Acute (2) Weakness Problem: Acute (3) Hypokalemia Problem: Resolved (4) Malnutrition Problem: Chronic Qualifiers: (5) Hypernatremia Problem: Acute (6) Dehydration Problem: Acute (7) Diarrhea Problem: Resolved (8) Elevated brain natriuretic peptide (BNP) level Problem: Acute (9) COPD (chronic obstructive pulmonary disease) Problem: Chronic (10) Alcoholism /alcohol abuse Problem: Chronic (11) Alcohol withdrawal Problem: Acute Qualifiers: Complication of substance-induced condition: uncomplicated Qualified Code(s): F10.230 - Alcohol dependence with withdrawal, uncomplicated (12) Tremor Problem: Acute (13) Scabies infestation Problem: Acute (14) Hypoglycemia Problem: Acute (15) Elevated SGOT (AST) Problem: Acute
[2020-03-15] MEDS: PANTOPRAZOLE SODIUM 40 MG TABLET.EC PO SCH (20:40)
[2020-03-16 07:30] LABS: Albumin * 0.9 gm/dl (3.4-5.0); Anion Gap 12.6 mmol/L (6.8-13.8); BUN/Creatinine Ratio 13.1 (9.0-21.6); Bilirubin, Total 0.3 mg/dL (0.0-1.1); Ca. Corrected For Albumin 9.6 mg/dL (8.4-10.2); Calcium * 7.4 mg/dL (7.9-10.9); Carbon Dioxide 21.3 mmol/L (24-32.6); Potassium 2.9 mmol/L (3.4-4.6); Total Protein 4.2 gm/dL (6.2-8.2)
[2020-03-16] MEDS: SUCRALFATE 1 G/10 ML UDC PO SCH ×4 (07:58→20:13)
[2020-03-16] MEDS: PANTOPRAZOLE SODIUM 40 MG TABLET.EC PO SCH ×2 (07:58→20:13)
[2020-03-16] MEDS: THIAMINE HCL 100 MG TABLET PO SCH (08:01)
--- NOTE | 2020-03-16 18:29 | PN ---
Subjective - Date and Time Seen Date: 03/16/20 Time: 13:40 Subjective Narrative: On service note: Lloyd Rodriguez was admitted with severe dehydration electrolyte imbalance, scabies infestation, and malnutrition. He has had excellent care in my absence by Dr. Duenas and is much appreciated. Today he is sitting up in his bed. He is alert and conversant and states that he has been walking to and from the bathroom without difficulty. He is starting to get some appetite and eating better. His sodium this morning is 143 and the potassium was 2.9. I repeated the potassium this afternoon and it was 3.7. There was no interim treatment. It is my understanding that [facility] placement is being attempted and he will need COVID testing done. I will repeat his laboratory work tomorrow. He will be ready for discharge as soon as the [facility] accepts. Objective - Review of Systems Generalized/Overall Review: Reports: Weakness, Weight loss EENTM: Reports: No Symptoms Reported Respiratory: Reports: No Symptoms Reported Cardiac: Reports: No Symptoms Reported Abdominal: Reports: No Symptoms Reported, Other - Improved appetite Genitourinary Symptoms: Reports: No Symptoms Reported Musculoskeletal Complaints: Reports: No Symptoms Reported Neurological: Reports: No Symptoms Reported Skin: Reports: Rash - Secondary to scabies infestation Endocrine: Reports: No Symptoms Reported - Vitals Vitals: Last Vital Signs Temp 36.5 C 03/16/20 10:00 Pulse 100 03/16/20 10:00 Resp 18 03/16/20 10:00 BP 138/74 03/16/20 10:00 Pulse Ox 96 03/16/20 10:00 - Abnormal Lab Findings Abnormal Lab Findings: Abnormal Lab Results 03/16/20 Range/Units 07:05 Sodium 146 H (132-142) mmol/L Plasma Sodium 146 H (130-142) mmol/L Potassium 2.9 L (3.4-4.6) mmol/L Chloride 115 H (97-106) mmol/L Carbon Dioxide 21.3 L (24-32.6) mmol/L Est GFR (Non-Af Amer) 55 L (60-130) mL/min Random Glucose 122 H (70-110) mg/dL Calcium 7.4 L (7.9-10.9) mg/dL Total Protein 4.2 L (6.2-8.2) gm/dL Albumin 0.9 L (3.4-5.0) gm/dl - Exam Constitutional: Present: Alert, Oriented x3, Cooperative, Well developed, Thin and frail, Looks Older than stated age ENT Exam: Present: normal ENT inspection, hearing grossly normal, pharynx normal Neck: Present: non-tender, full range of motion, supple, normal inspection Breasts: Present: Exam deferred, Nontender Respiratory: Present: chest non-tender, lungs clear, no respiratory distress, no accessory muscle use, decreased breath sounds Cardiovascular/Chest: Present: normal peripheral pulses, regular rate, rhythm, no chest tenderness, no edema, no gallop, no JVD, no murmur, no rub Abdomen: Present: Normal bowel sounds, soft, nontender, nondistended /Rectal: Present: Exam deferred Extremity: Present: normal range of motion Skin Exam: Present: normal color, pallor, skin rash - Due to scabies Lymphatic: Present: no adenopathy Neurologic: Present: 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 Continue current therapy 2. COVID-19 nasal swab testing 3. Repeat lab tomorrow morning 4. Discharge when accepted by the [facility] - Problems/Diagnosis (1) Weakness Problem: Acute (2) Malnutrition Problem: Chronic Qualifiers: Malnutrition type: protein-calorie malnutrition Protein-calorie malnutrition severity: severe Qualified Code(s): E43 - Unspecified severe protein-calorie malnutrition (3) Macrocytosis Problem: Chronic (4) Dehydration Problem: Acute (5) Alcoholism /alcohol abuse Problem: Chronic (6) Scabies infestation Problem: Acute (7) Essential hypertension Problem: Chronic
[2020-03-17] MEDS: PANTOPRAZOLE SODIUM 40 MG TABLET.EC PO SCH ×2 (06:32→21:17)
[2020-03-17] MEDS: SUCRALFATE 1 G/10 ML UDC PO SCH ×4 (06:32→21:17)
[2020-03-17 06:56] LABS: Hematocrit 25.7 % (42.0-52.0); Hemoglobin 8.4 gm/dL (13.5-18.0); Mean Cell Volume 98.1 fl (78-100); Mean Corpuscular Hemoglobin 32.1 pg (27-31); Mean Corpuscular Hgb Conc 32.7 g/dl (32-36); Mean Platelet Volume 10.9 fl (8-11.3); Neutrophil # 4.4 K/mm3 (1.3-6.0); Neutrophil % 56.1 % (42-75.0); Platelet Count 253 K/mm3 (150-450); Red Blood Count 2.62 M/mm3 (4.7-6.0); Red Cell Distribution Width 13.5 % (11.5-14.0); White Blood Count 7.9 K/mm3 (4.0-10.5)
[2020-03-17 07:12] LABS: Albumin * 1.1 gm/dl (3.4-5.0); Anion Gap 9.4 mmol/L (6.8-13.8); BUN/Creatinine Ratio 12.9 (9.0-21.6); Bilirubin, Total 0.4 mg/dL (0.0-1.1); Ca. Corrected For Albumin 9.5 mg/dL (8.4-10.2); Calcium * 7.5 mg/dL (7.9-10.9); Carbon Dioxide 25.2 mmol/L (24-32.6); Potassium 3.6 mmol/L (3.4-4.6); Total Protein 4.9 gm/dL (6.2-8.2)
[2020-03-17] MEDS: THIAMINE HCL 100 MG TABLET PO SCH (09:10)
[2020-03-18] MEDS: PANTOPRAZOLE SODIUM 40 MG TABLET.EC PO SCH ×2 (07:16→20:57)
[2020-03-18] MEDS: SUCRALFATE 1 G/10 ML UDC PO SCH ×4 (07:17→20:57)
[2020-03-18] MEDS: THIAMINE HCL 100 MG TABLET PO SCH (09:13)
[2020-03-18] MEDS ORDERED: LORazepam 2 MG/ML DISP.SYRIN IV PRN (11:12)
[2020-03-18] MEDS: LORazepam 1 MG TABLET PO PRN ×2 (11:37→20:56)
--- NOTE | 2020-03-18 23:56 | PN ---
Subjective - Date and Time Seen Date: 03/18/20 Time: 23:15 Subjective Narrative: Lloyd reports no concerns at this time. No pain, nausea, fever, or chills. Objective - Vitals Vitals: Last Vital Signs Temp 37.1 C 03/18/20 22:13 Pulse 113 H 03/18/20 22:13 Resp 22 H 03/18/20 22:13 BP 89/50 L 03/18/20 22:13 Pulse Ox 98 03/18/20 22:13 - Exam Constitutional: Present: Alert, Cooperative, Thin and frail ENT Exam: Present: hearing grossly normal Respiratory: Present: lungs clear, normal breath sounds, no respiratory distress Cardiovascular/Chest: Present: regular rate, rhythm. Absent: edema Abdomen: Present: Normal bowel sounds, soft, nontender, nondistended, no rebound tenderness Skin Exam: Present: warm/dry, no cyanosis, other - excoriations, thin Lymphatic: Present: no adenopathy Assessment/Plan Plan Narrative: Assessment/Plan Plan Narrative: Continue to look into penitentiary placement. Changed ativan to prn use for anxiety. CIWA has been under control. - Problems/Diagnosis (1) Weakness Problem: Acute (2) Malnutrition Problem: Chronic Qualifiers: Malnutrition type: protein-calorie malnutrition Protein-calorie malnutrition severity: severe Qualified Code(s): E43 - Unspecified severe protein-calorie malnutrition (3) Macrocytosis Problem: Chronic (4) Dehydration Problem: Acute (5) Alcoholism /alcohol abuse Problem: Chronic (6) Scabies infestation Problem: Acute (7) Essential hypertension Problem: Chronic - Problems/Diagnosis (1) Alcohol withdrawal Problem: Acute Qualifiers: Complication of substance-induced condition: uncomplicated Qualified Code(s): F10.230 - Alcohol dependence with withdrawal, uncomplicated (2) Weakness Problem: Acute (3) Alcoholism /alcohol abuse Problem: Chronic (4) Malnutrition Problem: Chronic Qualifiers: Malnutrition type: protein-calorie malnutrition Protein-calorie malnutriti on severity: severe Qualified Code(s): E43 - Unspecified severe protein- calorie malnutrition
[2020-03-19] MEDS: SUCRALFATE 1 G/10 ML UDC PO SCH ×4 (07:01→21:34)
[2020-03-19] MEDS: PANTOPRAZOLE SODIUM 40 MG TABLET.EC PO SCH ×2 (07:01→21:34)
[2020-03-19] MEDS: THIAMINE HCL 100 MG TABLET PO SCH (08:49)
[2020-03-19 11:48] LABS: Mean Cell Volume 98.7 fl (78-100); Mean Corpuscular Hemoglobin 33.5 pg (27-31); Mean Corpuscular Hgb Conc 33.9 g/dl (32-36); Mean Platelet Volume 10.7 fl (8-11.3); Neutrophil # 5.2 K/mm3 (1.3-6.0); Neutrophil % 63.7 % (42-75.0); Platelet Count 250 K/mm3 (150-450); Red Blood Count 2.27 M/mm3 (4.7-6.0); Red Cell Distribution Width 13.7 % (11.5-14.0); White Blood Count 8.2 K/mm3 (4.0-10.5)
[2020-03-19 12:01] LABS: Anion Gap 12.2 mmol/L (6.8-13.8); BUN/Creatinine Ratio 9.3 (9.0-21.6); Bilirubin, Total 0.4 mg/dL (0.0-1.1); Ca. Corrected For Albumin 9.8 mg/dL (8.4-10.2); Calcium * 7.7 mg/dL (7.9-10.9); Carbon Dioxide 24.6 mmol/L (24-32.6); Potassium 3.8 mmol/L (3.4-4.6); Total Protein 4.8 gm/dL (6.2-8.2)
[2020-03-19 12:12] LABS: Hemoglobin 7.6 gm/dL (13.5-18.0)
[2020-03-19 12:13] LABS: Hematocrit 22.4 % (42.0-52.0)
[2020-03-19] MEDS: LORazepam 1 MG TABLET PO PRN (15:38)
--- NOTE | 2020-03-19 23:26 | PN ---
Subjective - Date and Time Seen Date: 03/19/20 Time: 12:00 Subjective Narrative: Lloyd has no concerns. Denies fever, chills, nausea, or vomiting. Reports pain is controlled. Objective - Vitals Vitals: Last Vital Signs Temp 37.1 C 03/19/20 21:00 Pulse 103 H 03/19/20 21:00 Resp 18 03/19/20 21:00 BP 149/75 03/19/20 21:00 Pulse Ox 97 03/19/20 21:00 - Abnormal Lab Findings Abnormal Lab Findings: Abnormal Lab Results 03/19/20 03/19/20 Range/Units 11:43 11:43 RBC 2.27 L (4.7-6.0) M/mm3 Hgb 7.6 L* (13.5-18.0) gm/dL Hct 22.4 L* (42.0-52.0) % MCH 33.5 H (27-31) pg Eosinophils % 3.2 H (0.0-3.0) % Sodium 147 H (132-142) mmol/L Plasma Sodium 147 H (130-142) mmol/L Chloride 114 H (97-106) mmol/L Creatinine 1.83 H D (0.4-1.4) mg/dL Est GFR (Non-Af Amer) 39 L D (60-130) mL/min Random Glucose 126 H D (70-110) mg/dL Calcium 7.7 L (7.9-10.9) mg/dL AST 49 H (0-48) U/L Total Protein 4.8 L (6.2-8.2) gm/dL Albumin 1.0 L (3.4-5.0) gm/dl - Exam Constitutional: Present: Alert, Cooperative, Thin and frail. Absent: Oriented x3 ENT Exam: Present: hearing grossly normal Respiratory: Present: lungs clear, normal breath sounds Cardiovascular/Chest: Present: regular rate, rhythm, no murmur Abdomen: Present: Normal bowel sounds, soft, nontender, nondistended Extremity: Absent: lower extremity edema Skin Exam: Present: warm/dry, no cyanosis, pallor Assessment/Plan Plan Narrative: CIWA remain low and anxiety is controlled with ativan. Hemoglobin rechecked due to pallor. Hgb down to 7.6, indices within normal limits. Likely nutritional deficiency. Will add folate, b12, and iron supplements. - Problems/Diagnosis (1) Alcohol withdrawal Problem: Acute Qualifiers: Complication of substance-induced condition: uncomplicated Qualified Code(s): F10.230 - Alcohol dependence with withdrawal, uncomplicated (2) Weakness Problem: Acute (3) Alcoholism /alcohol abuse Problem: Chronic (4) Malnutrition Problem: Chronic Qualifiers: Malnutrition type: protein-calorie malnutrition Protein-calorie malnutrition severity: severe Qualified Code(s): E43 - Unspecified severe protein-calorie malnutrition
[2020-03-20 06:38] LABS: Mean Cell Volume 97.7 fl (78-100); Mean Corpuscular Hemoglobin 32.4 pg (27-31); Mean Corpuscular Hgb Conc 33.2 g/dl (32-36); Mean Platelet Volume 10.8 fl (8-11.3); Neutrophil # 4.6 K/mm3 (1.3-6.0); Neutrophil % 59.9 % (42-75.0); Platelet Count 258 K/mm3 (150-450); Red Blood Count 2.19 M/mm3 (4.7-6.0); Red Cell Distribution Width 13.8 % (11.5-14.0); White Blood Count 7.7 K/mm3 (4.0-10.5)
[2020-03-20 06:44] LABS: Hematocrit 21.4 % (42.0-52.0); Hemoglobin 7.1 gm/dL (13.5-18.0)
--- NOTE | 2020-03-20 06:54 | PN ---
Subjective - Date and Time Seen Date: 03/17/20 Time: 08:00 Subjective Narrative: Mr. Rodriguez has been stable and medically ready for discharge but still pending correction placement. No change in therapy. Weekend coverage has been discussed with Dr. Palacio. Objective - Review of Systems Generalized/Overall Review: Reports: Weakness, Malaise EENTM: Reports: No Symptoms Reported Respiratory: Reports: No Symptoms Reported Cardiac: Reports: No Symptoms Reported Abdominal: Reports: No Symptoms Reported Genitourinary Symptoms: Reports: No Symptoms Reported Musculoskeletal Complaints: Reports: No Symptoms Reported Neurological: Reports: No Symptoms Reported Skin: Reports: No Symptoms Reported Endocrine: Reports: No Symptoms Reported Misc: All systems neg except as marked - Vitals Vitals: Last Vital Signs Temp 37.1 C 03/20/20 04:19 Pulse 86 03/20/20 04:19 Resp 16 03/20/20 04:19 BP 91/52 03/20/20 04:19 Pulse Ox 94 03/20/20 04:19 - Abnormal Lab Findings Abnormal Lab Findings: Abnormal Lab Results 03/19/20 03/19/20 Range/Units 11:43 11:43 RBC 2.27 L (4.7-6.0) M/mm3 Hgb 7.6 L* (13.5-18.0) gm/dL Hct 22.4 L* (42.0-52.0) % MCH 33.5 H (27-31) pg Eosinophils % 3.2 H (0.0-3.0) % Sodium 147 H (132-142) mmol/L Plasma Sodium 147 H (130-142) mmol/L Chloride 114 H (97-106) mmol/L Creatinine 1.83 H D (0.4-1.4) mg/dL Est GFR (Non-Af Amer) 39 L D (60-130) mL/min Random Glucose 126 H D (70-110) mg/dL Calcium 7.7 L (7.9-10.9) mg/dL AST 49 H (0-48) U/L Total Protein 4.8 L (6.2-8.2) gm/dL Albumin 1.0 L (3.4-5.0) gm/dl - EKG/Xray Findings EKG: NSR - Exam Constitutional: Present: Alert, Oriented x3, Cooperative, Mild distress, Lethargic, Elderly, Thin and frail, Looks Older than stated age ENT Exam: Present: normal ENT inspection Neck: Present: non-tender Breasts: Present: Exam deferred Respiratory: Present: chest non-tender Cardiovascular/Chest: Present: normal peripheral pulses Abdomen: Present: Normal bowel sounds, soft, nontender, nondistended, no rebound tenderness, no hepatospenomegaly, no masses /Rectal: Present: Exam deferred Extremity: Present: normal range of motion, non-tender, normal inspection, no pedal edema, no calf tenderness, slow capillary refill Skin Exam: Present: pallor Lymphatic: Present: no adenopathy Neurologic: Present: 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 Continue to monitor lab work daily 2. Dr. Palacio to assume management through the weekend 3. Continue to search for correction placement - Problems/Diagnosis (1) Weakness Problem: Acute (2) Malnutrition Problem: Chronic Qualifiers: Malnutrition type: protein-calorie malnutrition Protein-calorie malnutrition severity: severe Qualified Code(s): E43 - Unspecified severe protein-calorie malnutrition (3) Macrocytosis Problem: Chronic (4) Dehydration Problem: Acute (5) Alcoholism /alcohol abuse Problem: Chronic (6) Scabies infestation Problem: Acute (7) Essential hypertension Problem: Chronic (8) Abnormal LFTs Problem: Acute (9) Anemia Problem: Acute Qualifiers: Anemia type: unspecified type Qualified Code(s): D64.9 - Anemia, unspecified
[2020-03-20 06:55] LABS: Albumin * 0.9 gm/dl (3.4-5.0); Anion Gap 10.7 mmol/L (6.8-13.8); BUN/Creatinine Ratio 10.3 (9.0-21.6); Bilirubin, Total 0.4 mg/dL (0.0-1.1); Ca. Corrected For Albumin 9.8 mg/dL (8.4-10.2); Calcium * 7.6 mg/dL (7.9-10.9); Carbon Dioxide 27.2 mmol/L (24-32.6); Potassium 2.9 mmol/L (3.4-4.6); Total Protein 4.5 gm/dL (6.2-8.2)
[2020-03-20] MEDS: SUCRALFATE 1 G/10 ML UDC PO SCH ×5 (07:07→22:13)
[2020-03-20] MEDS: PANTOPRAZOLE SODIUM 40 MG TABLET.EC PO SCH ×3 (07:07→22:13)
[2020-03-20] MEDS ORDERED: 0.5 NORMAL SALINE 1,000 ML IV PRN ×2 (07:16→07:28)
--- NOTE | 2020-03-20 07:37 | PN ---
Subjective - Date and Time Seen Date: 03/20/20 Time: 07:02 Subjective Narrative: Lloyd is weak, lethargic, and hypersomnolent this morning. He is otherwise in no acute distress. His color is pale. His blood pressure has dropped to systolic of 91. Lab this morning shows hemoglobin has dropped to 7.1 g and hematocrit is 21%. This is a 4% or more decrease in hemoglobin and with his hypotension I believe we will have to have blood transfused. I will set up 2 units of packed red cells. And also because of his alcoholism, anemia, and abnormal liver function tests I will order an abdominal ultrasound to be done this morning. He will be kept n.p.o. until after the ultrasound. Arrangements have been made for him to go to [facility]. Hopefully that can still happen this afternoon. His total protein has improved slightly to 4.4 g but the albumin has not moved from 1.0 since admission. I will also Hemoccult his stool if he has 1. Objective - Review of Systems Generalized/Overall Review: Reports: Weakness, Malaise, Fatigue EENTM: Reports: No Symptoms Reported Respiratory: Reports: No Symptoms Reported Cardiac: Reports: No Symptoms Reported Abdominal: Reports: No Symptoms Reported Genitourinary Symptoms: Reports: No Symptoms Reported Musculoskeletal Complaints: Reports: No Symptoms Reported Neurological: Reports: Weakness Skin: Reports: Change in Color - Vitals Vitals: Last Vital Signs Temp 37.1 C 03/20/20 04:19 Pulse 86 03/20/20 04:19 Resp 16 03/20/20 04:19 BP 91/52 03/20/20 04:19 Pulse Ox 94 03/20/20 04:19 - Abnormal Lab Findings Abnormal Lab Findings: Abnormal Lab Results 03/19/20 03/19/20 03/20/20 Range/Units 11:43 11:43 06:23 RBC 2.27 L 2.19 L (4.7-6.0) M/mm3 Hgb 7.6 L* 7.1 L* (13.5-18.0) gm/dL Hct 22.4 L* 21.4 L* (42.0-52.0) % MCH 33.5 H 32.4 H (27-31) pg Eosinophils % 3.2 H 4.9 H (0.0-3.0) % Sodium 147 H (132-142) mmol/L Plasma Sodium 147 H (130-142) mmol/L Chloride 114 H (97-106) mmol/L Creatinine 1.83 H D (0.4-1.4) mg/dL Est GFR (Non-Af Amer) 39 L D (60-130) mL/min Random Glucose 126 H D (70-110) mg/dL Calcium 7.7 L (7.9-10.9) mg/dL AST 49 H (0-48) U/L Total Protein 4.8 L (6.2-8.2) gm/dL Albumin 1.0 L (3.4-5.0) gm/dl - Exam Constitutional: Present: Alert, Oriented x3, Cooperative, Elderly, Thin and frail, Looks Older than stated age ENT Exam: Present: normal ENT inspection Neck: Present: non-tender, full range of motion, supple, normal inspection, trachea midline Breasts: Present: Nontender Respiratory: Present: chest non-tender, lungs clear, normal breath sounds, no respiratory distress, no accessory muscle use Cardiovascular/Chest: Present: regular rate, rhythm, no chest tenderness, no edema, no gallop, no JVD, no murmur, other Abdomen: Present: Normal bowel sounds - Pulse is weak and thready /Rectal: Present: Exam deferred Extremity: Present: normal range of motion, non-tender, normal inspection, no pedal edema, no calf tenderness, slow capillary refill Skin Exam: Present: warm/dry, pallor Lymphatic: Present: no adenopathy Neurologic: Present: 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 Type and cross for 2 units of packed red cells and have a third ready if needed 2. Check Hemoccult stool 3. Keep n.p.o. until after ultrasound 4. Complete abdominal ultrasound to be done this morning 5. Recheck hemoglobin/hematocrit 2 hours after the second unit is infused 6. Monitor vital signs during transfusion per protocol 7. I will ask Dr. Brock to consult and assist in management 8. Start half-normal saline bolus rate to get blood pressure systolic greater than 90 9. Moved to [facility] if there is adequate staffing - Problems/Diagnosis (1) Weakness Problem: Acute (2) Malnutrition Problem: Chronic Qualifiers: Malnutrition type: protein-calorie malnutrition Protein-calorie malnutrition severity: severe Qualified Code(s): E43 - Unspecified severe protein-calorie malnutrition (3) Macrocytosis Problem: Chronic (4) Dehydration Problem: Acute (5) Alcoholism /alcohol abuse Problem: Chronic (6) Scabies infestation Problem: Acute (7) Essential hypertension Problem: Chronic (8) Abnormal LFTs Problem: Acute (9) Anemia Problem: Chronic Qualifiers: Anemia type: unspecified type Qualified Code(s): D64.9 - Anemia, unspecified (10) Hypotension Problem: Acute Qualifiers: Hypotension type: hypotension due to hypovolemia Qualified Code(s): I95.89 - Other hypotension; E86.1 - Hypovolemia
--- NOTE | 2020-03-20 08:53 | ANES ---
Anesthesia Procedure Note Procedure Note: ANESTHESIA PROCEDURE NOTE Date of procedure: 03/20/2020. Time of procedure: 08 45. Performed by: Russel Parada CRNA General Machinist: None . Preprocedure diagnosis: Dyspnea, hypoglycemia, difficult IV access Post procedure diagnosis: Same. Procedure: IV starts x2 Indications: Difficult IV access. Findings: 20-gauge Angiocath IVs started in patient's right and left forearms EBL: Minimal. Fluids: N/A. Specimen: N/A. Post procedure condition: The patient tolerated the procedure well. No compl ications were noted. Thank you for this consultation Russel Parada CRNA
[2020-03-20] MEDS: THIAMINE HCL 100 MG TABLET PO SCH (08:58)
[2020-03-20] MEDS: FOLIC ACID 1 MG TABLET PO SCH (08:58)
[2020-03-20] MEDS: CYANOCOBALAMIN 1,000 MCG TABLET PO SCH (08:58)
[2020-03-20] MEDS: FERROUS SULFATE 325 MG TABLET PO SCH ×2 (08:58→17:27)
--- NOTE | 2020-03-20 09:37 | CONS ---
[facility] - General Date of Service: 03/20/20 Narrative: 69-year-old male with a past medical history of alcohol abuse, tobacco abuse, hypertension, pancreatitis, COPD, GERD presents with dehydration, scabies infection, malnutrition, hypernatremia, CHARITY and alcohol withdrawal. Patient developed unstable vitals this morning with blood pressure dropping to 80/38, mild tachycardia 103, increased confusion and lethargy. Blood labs show hemoglobin of 7.1, hematocrit 21.4, patient is in the process of receiving 2 units of packed red blood cells, he is hypernatremic at 154, hypokalemic at 2.9, creatinine is 1.75 and BUN is 42. Patient has no complaints today. He is alert and oriented x3. Source: patient - History of Present Illness Allergies/Adverse Reactions: Allergies No Known Allergies Allergy (Verified 03/12/20 16:26) Procedures Application of other wound dressing (11/19/14) Endoscopic polypectomy of large intestine (08/10/14) Enteral infusion of concentrated nutritional substances (12/01/12) Incision of pilonidal sinus or cyst (11/19/14) Other and open repair of indirect inguinal hernia with graft or prosthesis (08/10/14) Other digestive tract x-ray (12/01/12) Pharyngoscopy (08/10/14) Venous catheterization, not elsewhere classified (10/28/12) Medications - Medications Current Medications: Current Medications Acetaminophen (Tylenol) 500 mg PO Q6H PRN PRN Reason: Mild pain (pain scale 1-3) Stop: 04/11/20 15:45 Last Admin: 03/14/20 07:13 Dose: 500 mg Documented by: Cyanocobalamin (Vitamin B-12) 1,000 mcg PO DAILY [facility] Stop: 04/19/20 09:01 Last Admin: 03/20/20 08:58 Dose: Not Given Documented by: Ferrous Sulfate (Ferrous Sulfate) 325 mg PO BIDWM [facility] Stop: 04/19/20 09:01 Last Admin: 03/20/20 08:58 Dose: Not Given Documented by: Folic Acid (Folic Acid) 1 mg PO DAILY [facility] Stop: 04/19/20 09:01 Last Admin: 03/20/20 08:58 Dose: Not Given Documented by: Sodium Chloride (Sodium Chloride 0.45%) 1,000 mls @ 999 mls/hr IV .Q1H1M PRN PRN Reason: HYRDATION Stop: 04/19/20 07:29 Last Infusion: 03/20/20 09:13 Dose: Infused Documented by: Lorazepam (Ativan) 1 mg PO Q4H PRN PRN Reason: Anxiety Stop: 04/11/20 15:47 Last Admin: 03/19/20 15:38 Dose: 1 mg Documented by: Pantoprazole Sodium (Protonix) 40 mg PO BID@0700,2100 [facility] Stop: 04/14/20 21:01 Last Admin: 03/20/20 07:07 Dose: Not Given Documented by: Sucralfate (Carafate Suspension) 1 g PO ACHS [facility] Stop: 04/11/20 17:01 Last Admin: 03/20/20 07:07 Dose: Not Given Documented by: Thiamine HCl (Vitamin B-1) 100 mg PO DAILY [facility] Stop: 04/11/20 16:01 Last Admin: 03/20/20 08:58 Dose: Not Given Documented by: Review of Systems - Review of Systems Generalized/Overall Review: Present: Weakness. Absent: Fever Respiratory: Absent: Shortness of Breath Cardiac: Absent: Chest Pain Abdominal: Absent: Abdominal Pain Misc: All systems neg except as marked Physical Examination - Exam Vital Signs: Vital Signs - Last Taken Temp 36.6 C 03/20/20 09:20 Pulse 123 H 03/20/20 09:20 Resp 12 03/20/20 09:20 BP 90/50 03/20/20 09:20 Pulse Ox 100 03/20/20 09:20 O2 Oxygen Delivery Method Room Air Constitutional: Present: Alert, Oriented x3, Cooperative, Elderly, Thin and frail ENT Exam: Present: hearing grossly normal Eye Exam: bilateral eye: EOMI Neck: Present: non-tender. Absent: lymphadenopathy (R), lymphadenopathy (L) Respiratory: Present: lungs clear, no respiratory distress, no accessory muscle use, No wheezing. Absent: crackles, rhonchi Cardiovascular/Chest: Present: normal peripheral pulses, regular rate, rhythm, no murmur Abdomen: Present: Normal bowel sounds, soft, nontender Extremity: Present: no pedal edema Skin Exam: Present: skin rash - Abdomen and bilateral lower extremities Neurologic: Present: alert Eye contact: Present: cooperative Thoughts: Present: normal thought pattern, normal mood /affect - Results and Findings: Narrative: 69-year-old male with a past medical history of alcohol abuse, tobacco abuse, hypertension, pancreatitis, COPD, GERD presents with dehydration, scabies infection, malnutrition, hypernatremia, CHARITY and alcohol withdrawal. Patient developed unstable vitals this morning with blood pressure dropping to 80/38, mild tachycardia 103, increased confusion and lethargy. Blood labs show hemoglobin of 7.1, hematocrit 21.4, patient is in the process of receiving 2 units of packed red blood cells, he is hypernatremic at 154, hypokalemic at 2.9, creatinine is 1.75 and BUN is 42. Plan #1 change IV fluids to half-normal D5 water #2 replete potassium #3 agree with blood transfusion #4 if blood pressure does not stabilize with IV fluids consider pressors #5 check magnesium level because it may be contributing to the hypokalemia especially in the setting of being an alcoholic. Lab/Microbiology results last 24 hrs: Abnormal/Pending Laboratory Last 24 HRS 03/20/20 03/20/20 03/20/20 07:25 06:23 06:23 RBC 2.19 L Hgb 7.1 L* Hct 21.4 L* MCH 32.4 H Eosinophils % 4.9 H Sodium 153 H Plasma Sodium 154 H Potassium 2.9 L D Chloride 118 H Creatinine 1.75 H Est GFR (Non-Af Amer) 42 L Random Glucose 135 H Calcium 7.6 L AST Total Protein 4.5 L Albumin 0.9 L Crossmatch See Detail 03/19/20 03/19/20 11:43 11:43 RBC 2.27 L Hgb 7.6 L* Hct 22.4 L* MCH 33.5 H Eosinophils % 3.2 H Sodium 147 H Plasma Sodium 147 H Potassium Chloride 114 H Creatinine 1.83 H D Est GFR (Non-Af Amer) 39 L D Random Glucose 126 H D Calcium 7.7 L AST 49 H Total Protein 4.8 L Albumin 1.0 L Crossmatch - Assessments/Findings (1) Dehydration Problem: Acute (2) Hypernatremia Problem: Acute (3) Hypotension Problem: Acute Qualifiers: Hypotension type: hypotension due to hypovolemia Qualified Code(s): I95.89 - Other hypotension; E86.1 - Hypovolemia (4) Alcoholism /alcohol abuse Problem: Chronic (5) COPD (chronic obstructive pulmonary disease) Problem: Chronic (6) Hypokalemia Problem: Resolved (7) CHARITY (acute kidney injury) Problem: Acute (8) Anemia Problem: Chronic Qualifiers: Anemia type: unspecified type Qualified Code(s): D64.9 - Anemia, unspecified
[2020-03-20 17:24] LABS: Hematocrit 31.9 % (42.0-52.0); Hemoglobin 10.8 gm/dL (13.5-18.0); Mean Cell Volume 91.1 fl (78-100); Mean Corpuscular Hemoglobin 30.9 pg (27-31); Mean Corpuscular Hgb Conc 33.9 g/dl (32-36); Mean Platelet Volume 10.5 fl (8-11.3); Platelet Count 233 K/mm3 (150-450); Red Cell Distribution Width 15.7 % (11.5-14.0); White Blood Count 9.7 K/mm3 (4.0-10.5)
--- NOTE | 2020-03-20 17:52 | PN ---
[facility] Note - Interim Date: 03/20/20 Time: 17:41 Narrative: 03/20/20 17:41 Is had an eventful day. He is received 2 units of packed red blood cells because his hemoglobin this morning was 7.1 g he also had about 2-1/2 L of half- normal saline to give her pressure support this morning. Stabilize his blood pressure and his heart rate did drop some. He had 2 units of packed cells and his 2-hour post transfusion hemogram shows hemoglobin is at 10.8 g which is quite a surprise. He has 1/3 unit ready to transfuse if necessary. Dr. Brock graciously consulted today and had good recommendations for checking a magnesium in the morning, changing the IV solutions to D5 half-normal to give him some calories, give him some IV potassium replacement, and if pressure drops again consider pressors. He had an abdominal ultrasound today which shows fatty infiltration of the liver due to alcoholic cirrhosis. He also had a contracted gallbladder that was described as thickened and appeared to be cholecystitis but not defined is acute or chronic. He has no signs or symptoms of acute gallbladder inflammation or infection. I reviewed the case on the phone with Dr. Dietrich who reviewed the images and the radiologist interpretation. We believe that this is an incidental finding and not acute cholecystitis. Lloyd would be a very poor surgical candidate anyway and neither of us think that he should be subjected to that especially since he is asymptomatic. Dr. Dietrich's time and consideration is much appreciated.
[2020-03-20] MEDS: POTASSIUM CHLORIDE 20 MEQ in DEXTROSE 5%-0.5 NORMAL SALINE 990 ML IV SCH (18:48)
[2020-03-21 06:47] LABS: Hematocrit 32.8 % (42.0-52.0); Hemoglobin 11.2 gm/dL (13.5-18.0); Mean Cell Volume 91.4 fl (78-100); Mean Corpuscular Hemoglobin 31.2 pg (27-31); Mean Corpuscular Hgb Conc 34.1 g/dl (32-36); Mean Platelet Volume 10.6 fl (8-11.3); Neutrophil # 4.8 K/mm3 (1.3-6.0); Neutrophil % 51.7 % (42-75.0); Platelet Count 244 K/mm3 (150-450); Red Blood Count 3.59 M/mm3 (4.7-6.0); Red Cell Distribution Width 15.8 % (11.5-14.0); White Blood Count 9.3 K/mm3 (4.0-10.5)
[2020-03-21 07:04] LABS: Albumin * 1.1 gm/dl (3.4-5.0); Anion Gap 9.5 mmol/L (6.8-13.8); BUN/Creatinine Ratio 11.7 (9.0-21.6); Bilirubin, Total 0.6 mg/dL (0.0-1.1); Ca. Corrected For Albumin 9.2 mg/dL (8.4-10.2); Calcium * 7.2 mg/dL (7.9-10.9); Carbon Dioxide 26.7 mmol/L (24-32.6); Potassium 3.2 mmol/L (3.4-4.6); Total Protein 4.9 gm/dL (6.2-8.2)
[2020-03-21] MEDS: POTASSIUM CHLORIDE 20 MEQ in DEXTROSE 5%-0.5 NORMAL SALINE 990 ML IV SCH (07:04)
[2020-03-21] MEDS: SUCRALFATE 1 G/10 ML UDC PO SCH ×4 (07:06→21:58)
[2020-03-21] MEDS: PANTOPRAZOLE SODIUM 40 MG TABLET.EC PO SCH ×2 (07:06→21:58)
[2020-03-21 07:10] LABS: Magnesium 1.5 mg/dL (1.2-2.8)
[2020-03-21] MEDS: THIAMINE HCL 100 MG TABLET PO SCH (08:31)
[2020-03-21] MEDS: FOLIC ACID 1 MG TABLET PO SCH (08:31)
[2020-03-21] MEDS: FERROUS SULFATE 325 MG TABLET PO SCH ×2 (08:31→16:53)
[2020-03-21] MEDS: CYANOCOBALAMIN 1,000 MCG TABLET PO SCH (09:17)
[2020-03-21] MEDS: POTASSIUM CHLORIDE 20 MEQ TABLET.SA PO SCH (11:06)
[2020-03-21] MEDS: DEXTROSE 5 % IN WATER 1,000 ML IV PRN ×2 (11:09→19:30)
[2020-03-21 13:46] LABS: Anion Gap 9.5 mmol/L (6.8-13.8); BUN/Creatinine Ratio 10.9 (9.0-21.6); Calcium * 7.3 mg/dL (7.9-10.9); Carbon Dioxide 26.1 mmol/L (24-32.6); Estimated Creat Clear 48.6; Potassium 3.6 mmol/L (3.4-4.6)
[2020-03-21] MEDS ORDERED: hydrOXYzine HCL 25 MG TABLET PO PRN (16:30)
[2020-03-21] MEDS ORDERED: METHYLPREDNISOLONE SOD SUCC/PF 40 MG/ML VIAL IV ONE (16:33)
--- NOTE | 2020-03-21 16:50 | PN ---
Subjective - Date and Time Seen Date: 03/21/20 Time: 09:00 Objective - Review of Systems Generalized/Overall Review: Reports: No Symptoms Reported, Weakness, Malaise EENTM: Reports: No Symptoms Reported Respiratory: Reports: No Symptoms Reported Cardiac: Reports: No Symptoms Reported Abdominal: Reports: No Symptoms Reported Genitourinary Symptoms: Reports: No Symptoms Reported Musculoskeletal Complaints: Reports: No Symptoms Reported Neurological: Reports: Weakness, Other - hypersomnolence Skin: Reports: Rash, Other - pruritis Endocrine: Reports: No Symptoms Reported - Vitals Vitals: Last Vital Signs Temp 37.4 C 03/21/20 14:39 Pulse 111 H 03/21/20 14:39 Resp 25 H 03/21/20 14:39 BP 134/74 03/21/20 14:39 Pulse Ox 100 03/21/20 14:39 - Abnormal Lab Findings Abnormal Lab Findings: Abnormal Lab Results 03/20/20 03/21/20 03/21/20 Range/Units 17:23 06:35 06:35 RBC 3.50 L 3.59 L (4.7-6.0) M/mm3 Hgb 10.8 L 11.2 L (13.5-18.0) gm/dL Hct 31.9 L 32.8 L (42.0-52.0) % MCH 31.2 H (27-31) pg RDW 15.7 H 15.8 H (11.5-14.0) % Eosinophils % 7.0 H (0.0-3.0) % Sodium 151 H (132-142) mmol/L Plasma Sodium 151 H (130-142) mmol/L Potassium 3.2 L (3.4-4.6) mmol/L Chloride 118 H (97-106) mmol/L Creatinine 1.54 H (0.4-1.4) mg/dL Est GFR (Non-Af Amer) 48 L (60-130) mL/min Random Glucose 115 H (70-110) mg/dL Calcium 7.2 L (7.9-10.9) mg/dL Total Protein 4.9 L (6.2-8.2) gm/dL Albumin 1.1 L (3.4-5.0) gm/dl 03/21/20 Range/Units 13:31 RBC (4.7-6.0) M/mm3 Hgb (13.5-18.0) gm/dL Hct (42.0-52.0) % MCH (27-31) pg RDW (11.5-14.0) % Eosinophils % (0.0-3.0) % Sodium 147 H (132-142) mmol/L Plasma Sodium 147 H (130-142) mmol/L Potassium (3.4-4.6) mmol/L Chloride 115 H (97-106) mmol/L Creatinine 1.47 H (0.4-1.4) mg/dL Est GFR (Non-Af Amer) 51 L (60-130) mL/min Random Glucose 119 H (70-110) mg/dL Calcium 7.3 L (7.9-10.9) mg/dL Total Protein (6.2-8.2) gm/dL Albumin (3.4-5.0) gm/dl - Exam Constitutional: Present: Alert, Oriented x3, Cooperative, Well developed, Well nourished, No distress ENT Exam: Present: normal ENT inspection, hearing grossly normal, pharynx normal, TMs normal Neck: Present: non-tender, full range of motion, supple, normal inspection Breasts: Present: Exam deferred Respiratory: Present: chest non-tender, lungs clear, normal breath sounds, no respiratory distress, no accessory muscle use Cardiovascular/Chest: Present: normal peripheral pulses, regular rate, rhythm, no chest tenderness, no edema, no gallop, no JVD, no murmur, no rub Abdomen: Present: Normal bowel sounds, soft, nontender, nondistended, no rebound tenderness, no hepatospenomegaly, no masses /Rectal: Present: Exam deferred Extremity: Present: normal range of motion, non-tender, normal inspection, no pedal edema, no calf tenderness, normal capillary refill Skin Exam: Present: skin rash Lymphatic: Present: no adenopathy Neurologic: Present: 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 Na @ 151 today. Only dropped 2 points after changeing to 2 NSD5W. Hemaglobin is up to 11.2 grams today.Color is better. No evidence of fluid overload. C/o of diffuse pruritis. I will try a dose of solumedrol, Hydroxyzine, and triamcinolone cream. Recheck lab in morning looking for Na <145. - Problems/Diagnosis (1) Weakness Problem: Acute (2) Malnutrition Problem: Chronic Qualifiers: Malnutrition type: protein-calorie malnutrition Protein-calorie malnutrition severity: severe Qualified Code(s): E43 - Unspecified severe protein-calorie malnutrition (3) Macrocytosis Problem: Chronic (4) Dehydration Problem: Acute (5) Alcoholism /alcohol abuse Problem: Chronic (6) Scabies infestation Problem: Acute (7) Essential hypertension Problem: Chronic (8) Abnormal LFTs Problem: Acute (9) Anemia Problem: Chronic Qualifiers: Anemia type: unspecified type Qualified Code(s): D64.9 - Anemia, unspecified (10) Hypotension Problem: Acute Qualifiers: Hypotension type: hypotension due to hypovolemia Qualified Code(s): I95.89 - Other hypotension; E86.1 - Hypovolemia
[2020-03-21] MEDS: TRIAMCINOLONE ACETONIDE 15 APPL TUBE TP SCH (21:58)
[2020-03-22 06:33] LABS: Hematocrit 33.2 % (42.0-52.0); Hemoglobin 11.1 gm/dL (13.5-18.0); Mean Cell Volume 92.5 fl (78-100); Mean Corpuscular Hemoglobin 30.9 pg (27-31); Mean Corpuscular Hgb Conc 33.4 g/dl (32-36); Mean Platelet Volume 10.7 fl (8-11.3); Neutrophil # 4.6 K/mm3 (1.3-6.0); Neutrophil % 76.5 % (42-75.0); Platelet Count 231 K/mm3 (150-450); Red Blood Count 3.59 M/mm3 (4.7-6.0); Red Cell Distribution Width 15.4 % (11.5-14.0)
[2020-03-22 06:44] LABS: Albumin * 1.1 gm/dl (3.4-5.0); Anion Gap 11.5 mmol/L (6.8-13.8); BUN/Creatinine Ratio 11.2 (9.0-21.6); Bilirubin, Total 0.4 mg/dL (0.0-1.1); Ca. Corrected For Albumin 9.2 mg/dL (8.4-10.2); Calcium * 7.2 mg/dL (7.9-10.9); Potassium 3.5 mmol/L (3.4-4.6); Total Protein 4.9 gm/dL (6.2-8.2)
[2020-03-22] MEDS: SUCRALFATE 1 G/10 ML UDC PO SCH ×4 (07:00→20:34)
[2020-03-22] MEDS: PANTOPRAZOLE SODIUM 40 MG TABLET.EC PO SCH ×2 (07:01→20:34)
[2020-03-22] MEDS: DEXTROSE 5 % IN WATER 1,000 ML IV PRN (07:02)
[2020-03-22] MEDS ORDERED: INSULIN LISPRO 100 UNITS/ML VIAL SC ONE (07:50)
[2020-03-22] MEDS: POTASSIUM CHLORIDE 20 MEQ TABLET.SA PO SCH (09:29)
[2020-03-22] MEDS: TRIAMCINOLONE ACETONIDE 15 APPL TUBE TP SCH ×2 (09:29→20:35)
[2020-03-22] MEDS: FOLIC ACID 1 MG TABLET PO SCH (09:29)
[2020-03-22] MEDS: FERROUS SULFATE 325 MG TABLET PO SCH ×2 (09:29→17:54)
[2020-03-22] MEDS: THIAMINE HCL 100 MG TABLET PO SCH (09:30)
[2020-03-22] MEDS: CYANOCOBALAMIN 1,000 MCG TABLET PO SCH (09:30)
[2020-03-22] MEDS: MINERAL OIL/PETROLATUM,WHITE 454 APPL JAR TP SCH ×2 (09:31→20:35)
--- NOTE | 2020-03-22 17:21 | PN ---
Subjective - Date and Time Seen Date: 03/22/20 Time: 07:30 Subjective Narrative: Lloyd is the best I have seen him since this admission. This morning he is sitting up. He is fully alert awake and conversational. He is feeding himself. He does not want to get up to walk and cooperate much with physical therapy so we have reiterated the need for him to do that. His blood sugar was elevated this morning at 258. This is from steroid influence from the Solu-Medrol dose I gave last evening. I gave him 7 units of NovoLog and repeated his blood sugar at 10 AM which had dropped to 147. His sodium has been high and has dropped to normal range today down to 143. His total protein is still 4.9 and the albumin is 1.1. Apparently case management is having difficulty finding placement for him in a fdc. He will go to long term for a while. The skin rash appears to be mostly just eczema and has improved a lot with triamcinolone cream. The itching has been stopped with the Vistaril and the Solu-Medrol dose given last evening. He does not appear to be any recurrence of active scabies. I have discontinued his IV fluids and saline lock his IV. Case management will attempt placement again tomorrow. He does meet medical discharge criteria now with both his sodium and glucose corrected. Clinically he is significantly improved today and I would think the nursing homes would like to have a patient like him to work with. I will repeat lab work again tomorrow morning. Objective - Review of Systems Generalized/Overall Review: Reports: Weakness, Fatigue EENTM: Reports: No Symptoms Reported Respiratory: Reports: No Symptoms Reported Cardiac: Reports: No Symptoms Reported Abdominal: Reports: No Symptoms Reported Genitourinary Symptoms: Reports: No Symptoms Reported Musculoskeletal Complaints: Reports: No Symptoms Reported Neurological: Reports: No Symptoms Reported, Other - Improved mental status Skin: Reports: Rash - Eczematous rash with erythema that has responded nicely to topical therapy. The intense pruritus he was having yesterday is now gone due to the single dose of Solu-Medrol that was given and hydroxyzine. - Vitals Vitals: Last Vital Signs Temp 36.4 C 03/22/20 15:02 Pulse 79 03/22/20 15:02 Resp 20 03/22/20 15:02 BP 126/57 03/22/20 15:02 Pulse Ox 97 03/22/20 15:02 - Abnormal Lab Findings Abnormal Lab Findings: Abnormal Lab Results 03/22/20 03/22/20 Range/Units 06:24 06:24 RBC 3.59 L (4.7-6.0) M/mm3 Hgb 11.1 L (13.5-18.0) gm/dL Hct 33.2 L (42.0-52.0) % RDW 15.4 H (11.5-14.0) % Immature Gran % (Auto) 0.50 H (0.001-0.429) % Neutrophils % 76.5 H (42-75.0) % Lymphocytes # 1.24 L (1.5-3.5) k/mm3 Sodium 143 H (132-142) mmol/L Plasma Sodium 145 H (130-142) mmol/L Chloride 111 H (97-106) mmol/L Creatinine 1.52 H (0.4-1.4) mg/dL Est GFR (Non-Af Amer) 49 L (60-130) mL/min Random Glucose 252 H D (70-110) mg/dL Calcium 7.2 L (7.9-10.9) mg/dL Total Protein 4.9 L (6.2-8.2) gm/dL Albumin 1.1 L (3.4-5.0) gm/dl - Exam Constitutional: Present: Alert, Oriented x3, Cooperative, Well developed, Well nourished, No distress, Elderly, Thin and frail, Looks Older than stated age ENT Exam: Present: normal ENT inspection, hearing grossly normal, pharynx normal, TMs normal Neck: Present: non-tender, full range of motion, supple, normal inspection Respiratory: Present: chest non-tender, lungs clear, normal breath sounds, no respiratory distress Cardiovascular/Chest: Present: normal peripheral pulses, regular rate, rhythm, no chest tenderness, no edema, no gallop, no JVD, no murmur, no rub Abdomen: Present: Normal bowel sounds, soft, nontender, nondistended, no rebound tenderness, no hepatospenomegaly, no masses /Rectal: Present: Exam deferred Extremity: Present: normal range of motion, non-tender, normal inspection, no pedal edema, no calf tenderness, normal capillary refill Skin Exam: Present: normal color, warm/dry, no cyanosis Lymphatic: Present: no adenopathy 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 Continue current therapy except as noted above. Of saline lock his IV and DC'd his IV fluids. I will repeat his CBC and CMP tomorrow morning. 2. Continue to attempt to find fdc placement. - Problems/Diagnosis (1) Weakness Problem: Acute (2) Malnutrition Problem: Chronic Qualifiers: Malnutrition type: protein-calorie malnutrition Protein-calorie malnutrition severity: severe Qualified Code(s): E43 - Unspecified severe protein-calorie malnutrition (3) Macrocytosis Problem: Chronic (4) Dehydration Problem: Resolved (5) Alcoholism /alcohol abuse Problem: Chronic (6) Scabies infestation Problem: Resolved (7) Essential hypertension Problem: Chronic (8) Abnormal LFTs Problem: Chronic (9) Anemia Problem: Chronic Qualifiers: Anemia type: unspecified type Qualified Code(s): D64.9 - Anemia, unspeci fied (10) Hypotension Problem: Resolved Qualifiers: Hypotension type: hypotension due to hypovolemia Qualified Code(s): I95.89 - Other hypotension; E86.1 - Hypovolemia (11) Eczema [place]quele Problem: Chronic (12) Hyperglycemia, drug-induced Problem: Resolved (13) Hypernatremia Problem: Resolved
[2020-03-23 06:34] LABS: Hematocrit 34.5 % (42.0-52.0); Hemoglobin 11.5 gm/dL (13.5-18.0); Mean Cell Volume 92.5 fl (78-100); Mean Corpuscular Hemoglobin 30.8 pg (27-31); Mean Corpuscular Hgb Conc 33.3 g/dl (32-36); Mean Platelet Volume 10.9 fl (8-11.3); Neutrophil # 7.7 K/mm3 (1.3-6.0); Neutrophil % 72.6 % (42-75.0); Platelet Count 198 K/mm3 (150-450); Red Blood Count 3.73 M/mm3 (4.7-6.0); Red Cell Distribution Width 15.3 % (11.5-14.0); White Blood Count 10.6 K/mm3 (4.0-10.5)
[2020-03-23 06:45] LABS: Anion Gap 8.8 mmol/L (6.8-13.8); Bilirubin, Total 0.4 mg/dL (0.0-1.1); Ca. Corrected For Albumin 9.5 mg/dL (8.4-10.2); Calcium * 7.4 mg/dL (7.9-10.9); Carbon Dioxide 25.6 mmol/L (24-32.6); Potassium 3.4 mmol/L (3.4-4.6); Total Protein 5.2 gm/dL (6.2-8.2)
[2020-03-23] MEDS: PANTOPRAZOLE SODIUM 40 MG TABLET.EC PO SCH (07:44)
[2020-03-23] MEDS: SUCRALFATE 1 G/10 ML UDC PO SCH (07:44)
[2020-03-23] MEDS: THIAMINE HCL 100 MG TABLET PO SCH (09:04)
[2020-03-23] MEDS: FERROUS SULFATE 325 MG TABLET PO SCH (09:04)
[2020-03-23] MEDS: CYANOCOBALAMIN 1,000 MCG TABLET PO SCH (09:05)
[2020-03-23] MEDS: FOLIC ACID 1 MG TABLET PO SCH (09:05)
[2020-03-23] MEDS: POTASSIUM CHLORIDE 20 MEQ TABLET.SA PO SCH (09:05)
[2020-03-23] MEDS: TRIAMCINOLONE ACETONIDE 15 APPL TUBE TP SCH (09:05)
[2020-03-23] MEDS: MINERAL OIL/PETROLATUM,WHITE 454 APPL JAR TP SCH (09:06)
--- NOTE | 2020-03-23 09:48 | DS ---
(1) Weakness Problem: Acute (2) Malnutrition Problem: Chronic Qualifiers: Malnutrition type: protein-calorie malnutrition Protein-calorie malnutrition severity: severe Qualified Code(s): E43 - Unspecified severe protein-calorie malnutrition (3) Macrocytosis Problem: Chronic (4) Dehydration Problem: Resolved (5) Alcoholism /alcohol abuse Problem: Chronic (6) Scabies infestation Problem: Resolved (7) Essential hypertension Problem: Chronic (8) Abnormal LFTs Problem: Chronic (9) Anemia Problem: Chronic Qualifiers: Anemia type: unspecified type Qualified Code(s): D64.9 - Anemia, unspecified (10) Hypotension Problem: Resolved Qualifiers: Hypotension type: hypotension due to hypovolemia Qualified Code(s): I95.89 - Other hypotension; E86.1 - Hypovolemia (11) Eczema craquele Problem: Chronic (12) Hyperglycemia, drug-induced Problem: Resolved (13) Hypernatremia Problem: Chronic Date of Discharge:: 03/23/20 Hospital Course: Lloyd Rodriguez is a 69-year-old male admitted through ER severely dehydrated and malnourished. He is a longstanding chronic alcoholic. Electrolytes were abnormal with sodium was in the 150s. He had acute kidney injury that has resolved with rehydration. He has severe protein calorie malnutrition. The protein has improved since admission but the albumin has not continues to be 1.0. He developed a rash prior to admission and it was diagnosed as scabies. This was treated with permethrin and resolved the scabies infestation. He then developed an extremely itchy rash that appears to be eczema. He had a single dose of Solu-Medrol. Triamcinolone cream was then used topically and he was placed on hydroxyzine 25 mg tablets. That combination resolved his itching. We then added Eucerin cream to try to rehydrate the skin and desquamate the scaly skin. Yesterday morning was his best day since being here. His hypernatremia had been resolved. He did develop hyperglycemia from the steroid infusion. He was given a one-time dose of NovoLog 7 mg subcu which dropped his blood sugar 247. This morning his blood sugar fasting was 69. His sodium is 146 this morning up from 143 yesterday. His EGFR has improved to 56 with rehydration. His renal function has nearly returned to normal. He was anemic on admission and that worsened with a hemoglobin lowest recorded was 7.1 g. He received 2 units of packed red blood cells and the next day his hemoglobin was 10.6 g and it has continued to climb daily since then and today is 11.3 g. Overall, he is much improved. He is eating much better now. He is much more alert and conversant. He was hypersomnolent for the first several days of his admission. He will be going to a skilled facility in [facility] where the focus of therapy will be on continue to improve his nutritional status, improving his mobility with limb strengthening and gait training. He will need to have his chemistries and hemoglobin and hematocrit monitored weekly for the first month and thereafter to be determined by the attending physician. Procedures Performed: none Care Plan Goals: Improving nutritional status Improving muscle strength and activity level Improving mobility and ambulatory skills Avoidance of all alcohol Topical therapy for his dry skin Results and Findings: Lab Pending Results 03/12/20 11:47: WBC 7.4, RBC 3.59 L, Hgb 11.9 L, Hct 35.9 L, MCV 100.0, MCH 33.1 H, MCHC 33.1, RDW 13.2, Plt Count 182, MPV 11.6 H, Immature Gran % (Auto) 0.40, Immature Gran # (Auto) 0.03, Neutrophils % 49.0, Lymphocytes % 41.1, Monocytes % 5.0, Eosinophils % 3.7 H, Basophils % 0.8, Nucleated RBC % 0.0, Neutrophils # 3.6, Lymphocytes # 3.03, Monocytes # 0.4, Eosinophils # 0.3, Absolute Basophils 0.1 03/12/20 11:47: Sodium 145 H, Plasma Sodium 146 H, Potassium 3.0 L, Chloride 110 H, Carbon Dioxide 22.4 L, Anion Gap 15.6 H, BUN 18, Creatinine 1.88 H D, Est GFR (Non-Af Amer) 38 L D, BUN/Creatinine Ratio 9.6, Random Glucose 133 H, Calcium 7.7 L, Calcium Adj for Albumin 9.5, Total Bilirubin 0.5, AST 45, ALT 50, Alkaline Phosphatase 250 H, Troponin I 0.039, B-Natriuretic Peptide 2032 H, Total Protein 6.1 L, Albumin 1.4 L, Amylase 44, Lipase 5 L, Ethyl Alcohol 3.0 03/12/20 11:47: Ammonia Less than 17.0 03/12/20 11:47: Phosphorus 4.3 H, Magnesium 1.5 03/12/20 21:40: Urine Color Mone, Urine Appearance Clear, Urine pH 6.5, Ur Specific [place] 1.015, Urine Protein 15 H, Urine Glucose (UA) Negative, Urine Ketones Negative, Urine Blood 50 H, Urine Nitrate Negative, Urine Bilirubin Negative, Prot Sulfosalicylic Acd Negative, Urine Urobilinogen Normal, Ur Leukocyte Esterase Negative, Urine RBC 10-25 H, Urine WBC None seen, Ur Epithelial Cells 0-5, Urine Bacteria None seen, Urine Culture Comments No culture indicated 03/13/20 06:10: Sodium 145 H, Plasma Sodium 144 H, Potassium 4.3 D, Chloride 115 H, Carbon Dioxide 21.4 L, Anion Gap 12.9, BUN 15, Creatinine 1.61 H, Est GFR (Non-Af Amer) 46 L D, BUN/Creatinine Ratio 9.3, Random Glucose 39 L D, Calcium 6.7 L, Calcium Adj for Albumin 8.5, Total Bilirubin 0.4, AST 55 H, ALT 46, Alkaline Phosphatase 207 H, Total Protein 5.3 L, Albumin 1.3 L 03/13/20 09:19: Random Glucose 310 H D 03/14/20 06:29: Sodium 143 H, Plasma Sodium 143 H, Potassium 3.6, Chloride 114 H, Carbon Dioxide 20.8 L, Anion Gap 11.8, BUN 16, Creatinine 1.67 H, Est GFR (Non-Af Amer) 44 L, BUN/Creatinine Ratio 9.6, Random Glucose 104 D, Calcium 6.8 L, Calcium Adj for Albumin 8.9, Total Bilirubin 0.2, AST 59 H, ALT 44, Alkaline Phosphatase 188 H, Total Protein 4.4 L, Albumin 1.0 L 03/15/20 06:25: Sodium 143 H, Plasma Sodium 143 H, Potassium 3.4, Chloride 113 H, Carbon Dioxide 20.9 L, Anion Gap 12.5, BUN 16, Creatinine 1.54 H, Est GFR (Non-Af Amer) 48 L, BUN/Creatinine Ratio 10.4, Random Glucose 102, Calcium 7.1 L, Calcium Adj for Albumin 9.3, Total Bilirubin 0.2, AST 58 H, ALT 47, Alkaline Phosphatase 195 H, Total Protein 4.4 L, Albumin 0.8 L 03/16/20 07:05: Sodium 146 H, Plasma Sodium 146 H, Potassium 2.9 L, Chloride 115 H, Carbon Dioxide 21.3 L, Anion Gap 12.6, BUN 18, Creatinine 1.37, Est GFR (Non- Af Amer) 55 L, BUN/Creatinine Ratio 13.1, Random Glucose 122 H, Calcium 7.4 L, Calcium Adj for Albumin 9.6, Total Bilirubin 0.3, AST 45, ALT 45, Alkaline Phosphatase 156, Total Protein 4.2 L, Albumin 0.9 L 03/16/20 14:35: Potassium 3.7 D 03/17/20 04:00: SARS-CoV-2 (PCR) Not detected 03/17/20 06:40: WBC 7.9, RBC 2.62 L, Hgb 8.4 L, Hct 25.7 L, MCV 98.1, MCH 32.1 H, MCHC 32.7, RDW 13.5, Plt Count 253, MPV 10.9, Immature Gran % (Auto) 0.30, Immature Gran # (Auto) 0.02, Neutrophils % 56.1, Lymphocytes % 31.7, Monocytes % 8.1, Eosinophils % 3.3 H, Basophils % 0.5, Nucleated RBC % 0.0, Neutrophils # 4.4, Lymphocytes # 2.50, Monocytes # 0.6, Eosinophils # 0.3, Absolute Basophils 0.0 03/17/20 06:40: Sodium 145 H, Plasma Sodium 145 H, Potassium 3.6, Chloride 114 H, Carbon Dioxide 25.2, Anion Gap 9.4, BUN 18, Creatinine 1.40, Est GFR (Non-Af Amer) 54 L, BUN/Creatinine Ratio 12.9, Random Glucose 92, Calcium 7.5 L, Calcium Adj for Albumin 9.5, Total Bilirubin 0.4, AST 48, ALT 54, Alkaline Phosphatase 190 H, Total Protein 4.9 L, Albumin 1.1 L 03/19/20 11:43: WBC 8.2, RBC 2.27 L, Hgb 7.6 L*, Hct 22.4 L*, MCV 98.7, MCH 33.5 H, MCHC 33.9, RDW 13.7, Plt Count 250, MPV 10.7, Immature Gran % (Auto) 0.40, Immature Gran # (Auto) 0.03, Neutrophils % 63.7, Lymphocytes % 23.5, Monocytes % 8.7, Eosinophils % 3.2 H, Basophils % 0.5, Nucleated RBC % 0.0, Neutrophils # 5.2, Lymphocytes # 1.92, Monocytes # 0.7, Eosinophils # 0.3, Absolute Basophils 0.0 03/19/20 11:43: Sodium 147 H, Plasma Sodium 147 H, Potassium 3.8, Chloride 114 H, Carbon Dioxide 24.6, Anion Gap 12.2, BUN 17, Creatinine 1.83 H D, Est GFR (Non-Af Amer) 39 L D, BUN/Creatinine Ratio 9.3, Random Glucose 126 H D, Calcium 7.7 L, Calcium Adj for Albumin 9.8, Total Bilirubin 0.4, AST 49 H, ALT 48, Alkaline Phosphatase 153, Total Protein 4.8 L, Albumin 1.0 L 03/20/20 06:23: WBC 7.7, RBC 2.19 L, Hgb 7.1 L*, Hct 21.4 L*, MCV 97.7, MCH 32.4 H, MCHC 33.2, RDW 13.8, Plt Count 258, MPV 10.8, Immature Gran % (Auto) 0.30, Immature Gran # (Auto) 0.02, Neutrophils % 59.9, Lymphocytes % 27.1, Monocytes % 7.3, Eosinophils % 4.9 H, Basophils % 0.5, Nucleated RBC % 0.0, Neutrophils # 4.6, Lymphocytes # 2.08, Monocytes # 0.6, Eosinophils # 0.4, Absolute Basophils 0.0 03/20/20 06:23: Sodium 153 H, Plasma Sodium 154 H, Potassium 2.9 L D, Chloride 118 H, Carbon Dioxide 27.2, Anion Gap 10.7, BUN 18, Creatinine 1.75 H, Est GFR (Non-Af Amer) 42 L, BUN/Creatinine Ratio 10.3, Random Glucose 135 H, Calcium 7.6 L, Calcium Adj for Albumin 9.8, Total Bilirubin 0.4, AST 41, ALT 45, Alkaline Phosphatase 155, Total Protein 4.5 L, Albumin 0.9 L 03/20/20 07:25: Blood Type A Positive, Antibody Screen Negative, Crossmatch See Detail 03/20/20 09:24: Stool Occult Blood Negative 03/20/20 17:23: WBC 9.7 D, RBC 3.50 L, Hgb 10.8 L, Hct 31.9 L, MCV 91.1, MCH 30.9, MCHC 33.9, RDW 15.7 H, Plt Count 233, MPV 10.5 03/21/20 06:35: WBC 9.3, RBC 3.59 L, Hgb 11.2 L, Hct 32.8 L, MCV 91.4, MCH 31.2 H, MCHC 34.1, RDW 15.8 H, Plt Count 244, MPV 10.6, Immature Gran % (Auto) 0.20, Immature Gran # (Auto) 0.02, Neutrophils % 51.7, Lymphocytes % 33.8, Monocytes % 6.7, Eosinophils % 7.0 H, Basophils % 0.6, Nucleated RBC % 0.0, Neutrophils # 4.8, Lymphocytes # 3.16, Monocytes # 0.6, Eosinophils # 0.7, Absolute Basophils 0.1 03/21/20 06:35: Sodium 151 H, Plasma Sodium 151 H, Potassium 3.2 L, Chloride 118 H, Carbon Dioxide 26.7, Anion Gap 9.5, BUN 18, Creatinine 1.54 H, Est GFR (Non- Af Amer) 48 L, BUN/Creatinine Ratio 11.7, Random Glucose 115 H, Calcium 7.2 L, Calcium Adj for Albumin 9.2, Magnesium 1.5, Total Bilirubin 0.6, AST 40, ALT 48, Alkaline Phosphatase 168, Total Protein 4.9 L, Albumin 1.1 L 03/21/20 13:31: Sodium 147 H, Plasma Sodium 147 H, Potassium 3.6, Chloride 115 H, Carbon Dioxide 26.1, Anion Gap 9.5, BUN 16, Creatinine 1.47 H, Est GFR (Non- Af Amer) 51 L, BUN/Creatinine Ratio 10.9, Random Glucose 119 H, Calcium 7.3 L 03/22/20 06:24: WBC 6.0 D, RBC 3.59 L, Hgb 11.1 L, Hct 33.2 L, MCV 92.5, MCH 30.9, MCHC 33.4, RDW 15.4 H, Plt Count 231, MPV 10.7, Immature Gran % (Auto) 0.50 H, Immature Gran # (Auto) 0.03, Neutrophils % 76.5 H, Lymphocytes % 20.6, Monocytes % 2.2, Eosinophils % 0.2, Basophils % 0.0, Nucleated RBC % 0.0, Neutrophils # 4.6, Lymphocytes # 1.24 L, Monocytes # 0.1, Eosinophils # 0.0, Absolute Basophils 0.0 03/22/20 06:24: Sodium 143 H, Plasma Sodium 145 H, Potassium 3.5, Chloride 111 H, Carbon Dioxide 24.0, Anion Gap 11.5, BUN 17, Creatinine 1.52 H, Est GFR (Non- Af Amer) 49 L, BUN/Creatinine Ratio 11.2, Random Glucose 252 H D, Calcium 7.2 L, Calcium Adj for Albumin 9.2, Total Bilirubin 0.4, AST 34, ALT 45, Alkaline Phosphatase 159, Total Protein 4.9 L, Albumin 1.1 L 03/23/20 06:28: WBC 10.6 H D, RBC 3.73 L, Hgb 11.5 L, Hct 34.5 L, MCV 92.5, MCH 30.8, MCHC 33.3, RDW 15.3 H, Plt Count 198, MPV 10.9, Immature Gran % (Auto) 0.40, Immature Gran # (Auto) 0.04 H, Neutrophils % 72.6, Lymphocytes % 19.5 L, Monocytes % 6.3, Eosinophils % 1.1, Basophils % 0.1, Nucleated RBC % 0.0, Neutrophils # 7.7 H, Lymphocytes # 2.07, Monocytes # 0.7, Eosinophils # 0.1, Absolute Basophils 0.0 03/23/20 06:28: Sodium 146 H, Plasma Sodium 146 H, Potassium 3.4, Chloride 115 H, Carbon Dioxide 25.6, Anion Gap 8.8, BUN 19, Creatinine 1.36, Est GFR (Non-Af Amer) 56 L, BUN/Creatinine Ratio 14.0, Random Glucose 69 L D, Calcium 7.4 L, Calcium Adj for Albumin 9.5, Total Bilirubin 0.4, AST 31, ALT 43, Alkaline Phosphatase 169, Total Protein 5.2 L, Albumin 1.0 L Discharge Location: [facility] Disposition: [facility] Condition: Stable Face to Face Encounter completed per CMS Guidelines: No Level of Care: SNF Discharge Activity: Activity as tolerated Discharge Diet: General/regular food, Other - Ensure protein drinks tid between meals. [facility] Therapy: Physical Therapy, Occupation Therapy Consultation Done:: Dr. Brock Additional Patient Instructions (free text): To [facility], [facility]. PT and OT to evaluate and treat. Complete Home Medications List: Complete Home Medication List: Acetaminophen [Tylenol] 500 mg PO Q6H PRN #100 tab 03/23/20 Cyanocobalamin [Vitamin B-12] 1,000 mcg PO DAILY #30 tab 03/23/20 Ferrous Sulfate 325 mg PO DAILY #30 tab 03/23/20 Folic Acid 1 mg PO DAILY #30 tab 03/23/20 LORazepam [Ativan] 1 mg PO TID PRN #45 tab 03/23/20 Mineral Oil/Petrolatum,White [Eucerin] 1 appl TOPICAL BID #1 jar 03/23/20 Ondansetron [Zofran Odt] 8 mg PO Q6H PRN #20 tab.rapdis 03/23/20 Pantoprazole Sodium [Protonix] 40 mg PO DAILY #30 tablet. 03/23/20 Potassium Chloride [K-Dur] 20 meq PO DAILY #30 tablet.sa 03/23/20 Sucralfate [Carafate Suspension] 1 g PO ACHS 15 Days #60 udc 03/23/20 Thiamine HCl [Vitamin B-1] 100 mg PO DAILY #90 tab 03/23/20 Triamcinolone Acetonide [Kenalog 0.1% Cream] 1 appl TOPICAL BID #80 tube 03/23/20 hydrOXYzine HCL [Atarax] 25 mg PO QID PRN #30 tab 03/23/20 Amb Orders for Discharge: Comprehensive Metabolic Panel Time Frame: 1 Week, Facility: [facility], Location: Laboratory Hemogram Time Frame: 1 Week, Facility: [facility], Location: Laboratory Forms: Patient Portal Registration
[2020-03-23 10:01] VITALS: BP 96/69
== END 2020-03-23 10:15 | DRG 896 ==
LOC: MS 11:06 → ER 11:06 → OBSVTOIN 14:54 → MS 15:53 → SCU 03-20 07:22 → MS 03-20 18:50
PROVIDERS: ADMIT Family Medicine; ATTEND Family Medicine
CPT/HCPCS: 36415; 71010; 71045; 74019; 74020; 76700; 80048; 80053; 81001; 82140; 82150; 82272; 82947; 83519; 83690; 83735; 83880; 84100; 84132; 84484; 85025; 85027; 86850; 93005; 96361; 96365; 96366; 96367; 96372; 96375; 97116; 97161; 97164; 99285; G0378; P9016